=== PATIENT | female | born 1955 | race Caucasian/White ===

== ENCOUNTER → 2016-12-28 | Outpatient (REF) | payer MEDICARE, MEDICAID ==
[2016-12-28 12:48] LABS: MEAN CORPUSCULAR HEMOGLOBIN 30.3 pg (27.0-33.0); MEAN CORPUSCULAR HGB CONC 33.3 g/dl (32.0-36.5); MEAN CORPUSCULAR VOLUME 91.1 fl (80.0-96.0); RED CELL DISTRIBUTION WIDTH 12.7 % (11.5-14.5); WHITE BLOOD COUNT 7.2 K/mm3 (4.0-10.0)
[2016-12-28 13:15] LABS: ANION GAP 8 MEQ/L (8-16); BLOOD UREA NITROGEN 25 MG/DL (7-18); CALCIUM LEVEL 9.5 MG/DL (8.8-10.2); CARBON DIOXIDE LEVEL 30 MEQ/L (21-32); CHLORIDE LEVEL 104 MEQ/L (98-107); CREATININE FOR GFR 0.78 MG/DL (0.55-1.02); FREE T4 1.17 NG/DL (0.76-1.46); GLOMERULAR FILTRATION RATE > 60.0 (>45); GLUCOSE, FASTING 79 MG/DL (80-110); MAGNESIUM LEVEL 1.9 MG/DL (1.8-2.4); POTASSIUM SERUM 4.1 MEQ/L (3.5-5.1); SODIUM LEVEL 142 MEQ/L (136-145)
== END ==
LOC: M SFHCPLAZ 10:20
PROVIDERS: ATTEND Nurse Practitioner Family
DX: M79.1 Myalgia (principal); E03.9 Hypothyroidism, unspecified; K21.9 Gastro-esophageal reflux disease without esophagitis; E55.9 Vitamin D deficiency, unspecified

== ENCOUNTER → 2017-07-01 | Outpatient (REF) | payer MEDICARE, MEDICAID | LOC: M LAB REF 14:28 | PROVIDERS: ATTEND Nurse Practitioner Psychiatric/Mental Health | DX: Z51.81 Encounter for therapeutic drug level monitoring (principal); Z79.899 Other long term (current) drug therapy ==

== ENCOUNTER → 2017-07-01 | Outpatient (REF) | payer MEDICARE, MEDICAID ==
[2017-07-01 15:21] LABS: FOLATE > 24.0 NG/ML; VITAMIN B12 LEVEL 928 PG/ML
[2017-07-01 15:22] LABS: ALBUMIN 3.8 GM/DL (3.2-5.2); ALBUMIN/GLOBULIN RATIO 1.15 (1.00-1.93); ALKALINE PHOSPHATASE 85 U/L (45-117); ALT/SGPT 34 U/L (12-78); ANION GAP 7 MEQ/L (8-16); AST/SGOT 21 U/L (15-37); BILIRUBIN,TOTAL 0.8 MG/DL (0.2-1.0); BLOOD UREA NITROGEN 20 MG/DL (7-18); CALCIUM LEVEL 9.7 MG/DL (8.8-10.2); CARBON DIOXIDE LEVEL 30 MEQ/L (21-32); CHLORIDE LEVEL 104 MEQ/L (98-107); CHOLESTEROL LEVEL 180 MG/DL (<200); CREATININE FOR GFR 0.81 MG/DL (0.55-1.02); GLOMERULAR FILTRATION RATE > 60.0 (>45); GLUCOSE, FASTING 80 MG/DL (80-110); MAGNESIUM LEVEL 2.1 MG/DL (1.8-2.4); POTASSIUM SERUM 4.5 MEQ/L (3.5-5.1); SODIUM LEVEL 141 MEQ/L (136-145); TOTAL PROTEIN 7.1 GM/DL (6.4-8.2); TRIGLYCERIDES LEVEL 62 MG/DL (<150)
== END ==
LOC: M SFHCPLAZ 10:44
PROVIDERS: ATTEND Nurse Practitioner Family
DX: E78.2 Mixed hyperlipidemia (principal); E03.9 Hypothyroidism, unspecified; K21.9 Gastro-esophageal reflux disease without esophagitis; E55.9 Vitamin D deficiency, unspecified; Z51.81 Encounter for therapeutic drug level monitoring; Z79.899 Other long term (current) drug therapy

== ENCOUNTER → 2017-09-27 | Outpatient (REF) | payer MEDICARE, MEDICAID ==
[2017-09-27 14:13] LABS: TOTAL 25(OH) VITAMIN D 44.6 NG/ML (30.0-100.0)
[2017-09-27 14:35] LABS: ALBUMIN 3.7 GM/DL (3.2-5.2); ALBUMIN/GLOBULIN RATIO 1.19 (1.00-1.93); ALKALINE PHOSPHATASE 59 U/L (45-117); ALT/SGPT 30 U/L (12-78); ANION GAP 8 MEQ/L (8-16); AST/SGOT 21 U/L (7-37); BILIRUBIN,TOTAL 0.6 MG/DL (0.2-1.0); BLOOD UREA NITROGEN 19 MG/DL (7-18); CALCIUM LEVEL 8.6 MG/DL (8.8-10.2); CARBON DIOXIDE LEVEL 28 MEQ/L (21-32); CHLORIDE LEVEL 107 MEQ/L (98-107); CREATININE FOR GFR 0.77 MG/DL (0.55-1.02); GLOMERULAR FILTRATION RATE > 60.0 (>45); GLUCOSE, FASTING 97 MG/DL (80-110); POTASSIUM SERUM 4.2 MEQ/L (3.5-5.1); SODIUM LEVEL 143 MEQ/L (136-145); TOTAL PROTEIN 6.8 GM/DL (6.4-8.2)
== END ==
LOC: M SFHCPLAZ 10:49
DX: E78.2 Mixed hyperlipidemia (principal); E03.9 Hypothyroidism, unspecified; E55.9 Vitamin D deficiency, unspecified
CPT/HCPCS: 84443

== ENCOUNTER → 2017-10-09 | Outpatient (CLI) | payer MEDICARE, MEDICAID | LOC: M LAB 09:49 | DX: M19.91 Primary osteoarthritis, unspecified site (principal); M51.36 Other intervertebral disc degeneration, lumbar region; M51.37 Other intervertebral disc degeneration, lumbosacral region | CPT/HCPCS: 72110 ==

== ENCOUNTER → 2017-10-25 | Outpatient (CLI) | payer MEDICARE, MEDICAID | LOC: M WHC 13:26 | DX: Z12.31 Encounter for screening mammogram for malignant neoplasm of breast (principal); Z78.0 Asymptomatic menopausal state | CPT/HCPCS: 77067 ==

== ENCOUNTER 2017-11-01 14:00 | Outpatient (RCR) | payer MEDICARE, MEDICAID | END 2017-11-17 | LOC: M PT 14:00 | DX: Z51.89 Encounter for other specified aftercare (principal); M79.1 Myalgia | CPT/HCPCS: 97110 ==

== ENCOUNTER 2017-11-24 14:58 | Outpatient (RCR) | payer MEDICARE, MEDICAID | END 2017-12-18 | LOC: M PT 12-01 14:45 | DX: Z51.89 Encounter for other specified aftercare (principal); M79.1 Myalgia | CPT/HCPCS: 97110 ==

== ENCOUNTER → 2017-12-15 | Outpatient (REF) | payer MEDICARE, MEDICAID ==
[2017-12-15 18:42] LABS: BASO # 0.1 10^3/uL (0.0-0.2); BASO % 0.8 % (0.0-1.0); EOS # 0.1 10^3/uL (0.0-0.50); HEMATOCRIT 38.3 % (36.0-47.0); HEMOGLOBIN 12.7 g/dl (12.0-16.0); IMMATURE GRANULOCYTE % 0.2 % (0-3.0); LYMPH # 2.2 10^3/uL (1.5-4.5); MEAN CORPUSCULAR HEMOGLOBIN 31.5 pg (27.0-33.0); MEAN CORPUSCULAR HGB CONC 33.2 g/dl (32.0-36.5); MONO # 0.6 10^3/uL (0.0-0.8); MONO % 9.7 % (0.0-5.0); NEUTROPHILS # 3.1 10^3/uL (1.8-7.7); NEUTROPHILS % 51.3 % (36.0-66.0); PLATELET COUNT, AUTOMATED 244 10^3/uL (150-450); RED BLOOD COUNT 4.03 10^6/uL (4.00-5.40); RED CELL DISTRIBUTION WIDTH 14.3 % (11.5-14.5)
[2017-12-15 19:02] LABS: ALBUMIN/GLOBULIN RATIO 1.33 (1.00-1.93); ALKALINE PHOSPHATASE 56 U/L (45-117); ALT/SGPT 24 U/L (12-78); ANION GAP 5 MEQ/L (8-16); AST/SGOT 14 U/L (7-37); BILIRUBIN,TOTAL 0.9 MG/DL (0.2-1.0); BLOOD UREA NITROGEN 20 MG/DL (7-18); CALCIUM LEVEL 9.5 MG/DL (8.8-10.2); CARBON DIOXIDE LEVEL 31 MEQ/L (21-32); CHLORIDE LEVEL 107 MEQ/L (98-107); CREATININE FOR GFR 0.76 MG/DL (0.55-1.30); GLOMERULAR FILTRATION RATE > 60.0 (>45); GLUCOSE, FASTING 87 MG/DL (70-100); POTASSIUM SERUM 4.2 MEQ/L (3.5-5.1); SODIUM LEVEL 143 MEQ/L (136-145)
[2017-12-15 19:15] LABS: ERYTHROCYTE SEDIMENTATION RATE 15 mm/hr (0-30)
== END ==
LOC: M SFHCPLAZ 14:54
DX: M25.552 Pain in left hip (principal)
CPT/HCPCS: 80053

== ENCOUNTER → 2017-12-20 | Outpatient (CLI) | payer MEDICARE, MEDICAID | LOC: M RAD 18:57 | DX: M25.552 Pain in left hip (principal) | CPT/HCPCS: 73502 ==

== ENCOUNTER 2017-12-22 14:51 | Outpatient (RCR) | payer MEDICARE, MEDICAID | END 2018-01-17 | LOC: M PT 14:51 | DX: Z51.89 Encounter for other specified aftercare (principal); M79.1 Myalgia | CPT/HCPCS: 97110 ==

== ENCOUNTER → 2018-07-08 | Outpatient (REF) | payer MEDICARE, MEDICAID ==
[2018-07-08 13:02] LABS: ALBUMIN 4.3 GM/DL (3.2-5.2); ALBUMIN/GLOBULIN RATIO 1.43 (1.00-1.93); ALKALINE PHOSPHATASE 62 U/L (45-117); ALT/SGPT 34 U/L (12-78); ANION GAP 6 MEQ/L (8-16); AST/SGOT 22 U/L (7-37); BLOOD UREA NITROGEN 16 MG/DL (7-18); CALCIUM LEVEL 9.6 MG/DL (8.8-10.2); CARBON DIOXIDE LEVEL 32 MEQ/L (21-32); CHLORIDE LEVEL 102 MEQ/L (98-107); CHOLESTEROL LEVEL 214 MG/DL (<200); CHOLESTEROL RISK RATIO 2.206 (<5); CREATININE FOR GFR 0.84 MG/DL (0.55-1.30); FREE T4 1.13 NG/DL (0.76-1.46); GLOMERULAR FILTRATION RATE > 60.0 (>45); GLUCOSE, FASTING 92 MG/DL (70-100); HDL CHOLESTEROL 97 MG/DL (>40); LDL CHOLESTEROL 107 MG/DL (<100); NON-HDL-C 117 MG/DL; POTASSIUM SERUM 4.1 MEQ/L (3.5-5.1); SODIUM LEVEL 140 MEQ/L (136-145); THYROID STIMULATING HORMONE 0.713 uIU/ML (0.358-3.740); TOTAL PROTEIN 7.3 GM/DL (6.4-8.2); TRIGLYCERIDES LEVEL 50 MG/DL (<150)
[2018-07-08 13:04] LABS: TOTAL 25(OH) VITAMIN D 54.1 NG/ML (30.0-100.0)
== END ==
LOC: M SFHCPLAZ 10:38
DX: E78.2 Mixed hyperlipidemia (principal); E03.9 Hypothyroidism, unspecified; E55.9 Vitamin D deficiency, unspecified
CPT/HCPCS: 84443

== ENCOUNTER → 2018-10-28 | Outpatient (CLI) | payer MEDICARE, MEDICAID ==
--- NOTE | 2018-10-28 17:14 | REPMRS ---
Patient History The patient states she had a clinical breast exam in 11/08 Family history of breast cancer at age 50 or over in mother, colorectal cancer at age 50 or over in maternal grandmother. Digital Woman Screen Mammo: October 28, 2018 - Exam #: [id number] Bilateral CC and MLO view(s) were taken. Technologist: Dennise Ribeiro, Technologist Prior study comparison: October 25, 2017, digital woman screen mammo performed at [facility]. April 28, 2016, digital woman screen mammo performed at [facility]. February 13, 2015, digital woman screen mammo performed at [facility]. FINDINGS: The breast tissue is heterogeneously dense. This may lower the sensitivity of mammography. There is a moderate amount of heterogeneously dense fibroglandular tissue which is fairly symmetric. There is no interval development of dominant mass, architectural distortion, or clustered microcalcification typical of malignancy. There has been no change in the appearance of the mammogram from the prior studies. 3-D tomosynthesis shows no additional findings. Assessment: BI-RADS/ACR category 1 mammogram. Negative Mammogram. Recommendation Routine screening mammogram of both breasts in 1 year (for women over age 40). This patient's Lifetime Breast Cancer RIsk is estimated at 8.9 %. This mammogram was interpreted with the aid of an FDA-approved computer-aided dectection system. Electronically Signed By: Milton Florentino MD 10/28/18 [id number]
== END ==
LOC: M WHC 15:13
PROVIDERS: ATTEND Nurse Practitioner Family
DX: Z12.31 Encounter for screening mammogram for malignant neoplasm of breast (principal); Z80.3 Family history of malignant neoplasm of breast; Z80.0 Family history of malignant neoplasm of digestive organs

== ENCOUNTER → 2018-11-01 | Outpatient (REF) | payer MEDICARE, MEDICAID ==
[~2018-11-01] MED LIST: ADV500INH INH; ALBU83IN INH; ARIP1TAB PO; BACL10TA2 PO; BUSP15TA47 PO; CALC1TAB55 PO; CELE1CAP4 PO; CENT1TAB PO; CLON0.5T8 PO; DULO1CAP3 PO; FOLI800C PO; LEVO88TA3 PO; MAGN500C2 PO; MONT10TA2 PO; MYRB50TA PO; OMEP20CA3 PO; PRAV40TA2 PO; PRAZ2CAP PO; PROAAER10 INH; TRAZO50TA PO; TYLE650T35 PO; VITA100067 PO; ZIPR80CA12 PO
[2018-11-01 16:37] LABS: APPEARANCE, URINE CLEAR (CLEAR); BACTERIA, URINE AUTO NEGATIVE (NEGATIVE); BILIRUBIN, URINE AUTO NEGATIVE (NEGATIVE); BLOOD, URINE BLOOD NEGATIVE (NEGATIVE); COLOR, URINE YELLOW (YELLOW); GLUCOSE, URINE (UA) AUTO NEGATIVE (NEGATIVE); KETONE, URINE AUTO NEGATIVE (NEGATIVE); LEUKOCYTE ESTERASE, URINE AUTO NEGATIVE (NEGATIVE); MUCUS, URINE SMALL (NEGATIVE); NITRITE, URINE AUTO NEGATIVE (NEGATIVE); PROTEIN, URINE AUTO NEGATIVE (NEGATIVE); RBC, URINE AUTO 2 /HPF (0-3); SPECIFIC GRAVITY URINE AUTO 1.009 (1.002-1.035); SQUAMOUS EPITHELIAL CELL UR AU 0 /HPF (0-6); UROBILINOGEN, URINE AUTO 0.2 mg/dL (0.0-2.0); WBC, URINE AUTO 0 /HPF (0-3)
== END ==
LOC: M SFHCPLAZ 14:45
PROVIDERS: ATTEND Nurse Practitioner Family
DX: R35.0 Frequency of micturition (principal)
CPT/HCPCS: 81001; 87086; G0463

== ENCOUNTER 2018-12-02 09:14 | Day surgery (SDC) | payer MEDICARE, MEDICAID ==
[~2018-12-02] VITALS: Ht 160 cm; Wt 82.5 kg
[2018-12-02] MEDS ORDERED: NS 1,000 ML IV ONE (09:45)
--- NOTE | 2018-12-02 11:33 | ROOR ---
Patient Name: Silke Huitron Procedure Date: 12/02/2018 10:57 AM Date of : 1955 Age: 63 Room: [facility] Gender: Female Note Status: Finalized Procedure: Colonoscopy Indications: High risk colon cancer surveillance: Personal history of colonic polyps, Family history of colon cancer Providers: Cameron ALBERTS MD Referring MD: Krissy Huntley NP Requesting Provider: Medicines: Monitored Anesthesia Care Complications: No immediate complications. Procedure: Pre-Anesthesia Assessment: - The heart rate, respiratory rate, oxygen saturations, blood pressure, adequacy of pulmonary ventilation, and response to care were monitored throughout the procedure. The Colonoscope was introduced through the anus and advanced to the cecum, identified by appendiceal orifice and ileocecal valve. The colonoscopy was performed with patient supine throughout the procedure but without difficulty. The patient tolerated the procedure well. The quality of the bowel preparation was good. Findings: The perianal and digital rectal examinations were normal. Two sessile polyps were found in the sigmoid colon. The polyps were 3 to 4 mm in size. These polyps were removed with a cold snare. Resection and retrieval were complete. Mild sigmoid diverticulosis and small internal hemorrhoids. Impression: - Two 3 to 4 mm polyps in the sigmoid colon, removed with a cold snare. Resected and retrieved. - Mild sigmoid diverticulosis and small internal hemorrhoids. - The exam was otherwise normal to the cecum. Recommendation: - Repeat colonoscopy in 5 years for adenoma surveillance. Cameron Alberts MD Cameron ALBERTS MD 12/02/2018 11:32:36 AM This report has been signed electronically. Number of Addenda: 0 Note Initiated On: 12/02/2018 10:57 AM Estimated Blood Loss: Estimated blood loss: none.
[2018-12-02] MEDS ORDERED: PROPOFOL 200 MG/20 ML VIAL As Ordered ONE (11:49)
[2018-12-02] MEDS ORDERED: LIDOCAINE 2% INJ 100 MG/5 ML SDV (FOR ANES.) As Ordered ONE (11:49)
[2018-12-02 11:55] VITALS: BP 160/75
== END 2018-12-02 11:57 | disposition home or self-care (01) ==
LOC: M OPP 09:14
PROVIDERS: ATTEND Internal Medicine Gastroenterology
DX: Z12.11 Encounter for screening for malignant neoplasm of colon (principal); Z86.010 Personal history of colon polyps; Z80.0 Family history of malignant neoplasm of digestive organs; D12.5 Benign neoplasm of sigmoid colon; K57.30 Diverticulosis of large intestine without perforation or abscess without bleeding; K64.9 Unspecified hemorrhoids; Z79.899 Other long term (current) drug therapy

== ENCOUNTER → 2019-01-10 | Outpatient (REF) | payer MEDICARE, MEDICAID ==
[2019-01-10 13:41] LABS: ALBUMIN 3.7 GM/DL (3.2-5.2); ALT/SGPT 36 U/L (12-78); BILIRUBIN,TOTAL 0.8 MG/DL (0.2-1.0); BLOOD UREA NITROGEN 20 MG/DL (7-18); CALCIUM LEVEL 9.3 MG/DL (8.8-10.2); CARBON DIOXIDE LEVEL 30 MEQ/L (21-32); CHLORIDE LEVEL 105 MEQ/L (98-107); CREATININE FOR GFR 0.72 MG/DL (0.55-1.30); FREE T4 1.06 NG/DL (0.76-1.46); GLOMERULAR FILTRATION RATE > 60.0 (>45); GLUCOSE, FASTING 85 MG/DL (70-100); POTASSIUM SERUM 4.4 MEQ/L (3.5-5.1); SODIUM LEVEL 140 MEQ/L (136-145); TOTAL 25(OH) VITAMIN D 48.3 NG/ML (30.0-100.0)
[2019-01-11 10:55] LABS: HEPATITIS C VIRUS ABY INDEX 0.1 INDEX (<0.8)
== END ==
LOC: M SFHCPLAZ 10:52
PROVIDERS: ATTEND Nurse Practitioner Family
DX: M51.36 Other intervertebral disc degeneration, lumbar region (principal); E03.9 Hypothyroidism, unspecified; Z11.59 Encounter for screening for other viral diseases; E55.9 Vitamin D deficiency, unspecified

== ENCOUNTER → 2019-03-08 | Outpatient (CLI) | payer MEDICARE, MEDICAID ==
[~2019-03-08] MED LIST changes: +TRAZ1TAB10 PO; -TRAZO50TA PO
[2019-03-08 09:59] LABS: BLOOD UREA NITROGEN 16 MG/DL (7-18); CALCIUM LEVEL 9.7 MG/DL (8.8-10.2); CARBON DIOXIDE LEVEL 29 MEQ/L (21-32); CHLORIDE LEVEL 105 MEQ/L (98-107); CREATININE FOR GFR 0.87 MG/DL (0.55-1.30); GLOMERULAR FILTRATION RATE > 60.0 (>45); GLUCOSE, FASTING 89 MG/DL (70-100); POTASSIUM SERUM 4.1 MEQ/L (3.5-5.1); SODIUM LEVEL 140 MEQ/L (136-145)
--- NOTE | 2019-03-08 10:09 | REP ---
PA and lateral chest: There are no comparisons. Lung catherine are clear. The cardiac size is normal. The rex and mediastinum are unremarkable. There is thoracic scoliosis convex right. There is a cervical spine stabilization plate. Impression: There are no acute cardiopulmonary changes. Thoracic scoliosis. Cervical spine stabilization plate. Electronically Signed by He Azar MD 03/08/2019 10:01 A
--- NOTE | 2019-03-09 07:42 | ECGEPIP ---
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
== END ==
LOC: M LAB 08:02
PROVIDERS: ATTEND Orthopaedic Surgery
DX: Z01.818 Encounter for other preprocedural examination (principal); M48.00 Spinal stenosis, site unspecified; J44.9 Chronic obstructive pulmonary disease, unspecified

== ENCOUNTER 2019-03-27 07:30 | Inpatient (IN) | payer MEDICARE, MEDICAID ==
--- NOTE | 2019-03-21 17:56 | HPE ---
DATE OF ADMISSION: 03/27/2019 ATTENDING PHYSICIAN: Dr. Andre CHIEF COMPLAINT: Back pain and pain radiating to her left greater than right lower extremity. HISTORY: This is a 63-year-old female patient with progressively worsening back pain and pain radiating to the lower extremities, left greater than the right per the patient. She has gone through epidural steroid injections with minimal improvement with symptoms worsened. Gabapentin did not help. Her MRI is consistent with spinal stenosis. X-rays notable for a spondylolisthesis grade 1 at L3-4. She has been consented by Dr. Andre for a left unilateral laminectomy at L3-4 as well as pedicle screw fusion at L3-4 with the use of iliac crest graft from either the left or right side and donor bone. Medical optimization by Dr. Carter. ALLERGIES: NAPROXEN, ENABLEX as well as OXYBUTYNIN. PAST MEDICAL HISTORY: Includes elevated lipids, spinal stenosis with neurogenic claudication, lumbar spondylolisthesis L3-4, gastric reflux disease, asthma, depression, hypothyroidism, history of alcohol abuse, schizophrenia, neck pain status post fusion, osteopenia and osteoarthritis. PAST SURGICAL HISTORY: Includes tubal ligation, three abortions, teeth extraction, cervical fusion, she is unsure of what levels, tonsillectomy and colonoscopy. CURRENT MEDICATIONS: - acetaminophen 650 mg one tablet every four hours as needed - Abilify 10 mg one tablet once per day - trazodone 50 mg one tablet at bedtime - Geodon 80 mg one tablet twice a day - clonazepam 0.25 mg one tablet as needed daily - BuSpar 15 mg one tablet three times a day - folic acid 400 mcg one tablet once per day - daily multivitamin - prazosin 2 mg one tablet at bedtime - Cymbalta 20 mg two tablets once per day - baclofen 10 mg one tablet up to twice a day - vitamin D - pravastatin 40 mg one tablet once per day - gabapentin 300 mg one tablet three times a day - Zanaflex 2 mg as needed - ProAir inhaler 90 mcg two puffs as needed - levothyroxine 88 mcg one tablet in the morning - albuterol inhaler as needed - Myrbetriq 50 mg one tablet once per day - magnesium 500 mg one tablet once per day - Singulair 10 mg one tablet in the evening - Celebrex 200 mg one tablet once per day - Prilosec 20 mg one tablet once per day - Advair Diskus 500/50 mcg one spray twice a day FAMILY HISTORY: Breast cancer, diabetes, throat cancer, coronary artery disease, colon cancer. SOCIAL HISTORY: She is a former smoker, former use of alcohol. She is currently retired. REVIEW OF SYSTEMS: Denies fever or chills. Denies chest pain, shortness of breath. Denies difficulty breathing. Denies recent upper respiratory infection (URI) or urinary tract infection (UTI) symptoms. Notes persistent pain in her back, pain down into her lower extremities, left greater than the right. Denies change in her bowel or bladder habits. PHYSICAL EXAMINATION: Today reveals an alert, well-nourished, elderly female patient. She ambulates with a slow gait but her gait is not wide-based. Her mood and affect are appropriate. Deep tendon reflexes are absent at the knees, absent at the ankles. Straight leg raise testing is negative. Skin around the back is intact. No erythema, edema or ecchymosis. Neck is supple without adenopathy or jugular venous distention (JVD). There is a well-healed surgical scar. Lungs are clear to auscultation without rales or wheeze. Heart: Regular rate and rhythm. Abdomen: Bowel sounds are present. Height 62 inches, weight 184 pounds, temperature 98.3, blood pressure 127/77, pulse 72, respirations 18. LABORATORY DATA: Hemoglobin 12.9, glucose 89, BUN 16, creatinine 0.87, sodium 140, potassium 4.1. Chest x-ray shows no acute cardiopulmonary disease process noted. EKG: Sinus rhythm with PVCs. IMPRESSION: Lumbar spinal stenosis with neurogenic claudication L3-4, lumbar spondylolisthesis L3-4. PLAN: She has consented for a left unilateral laminectomy L3-4 and fusion with pedicle screws at L3-4 with the use of iliac crest graft from the right or left hip and the use of donor bone. TJ
[~2019-03-27] VITALS: Ht 160 cm; Wt 83.0 kg
[2019-03-27] VITALS (20 sets, daily range): BP systolic 91–178; BP diastolic 66–96
[~2019-03-27 07:30] MED LIST changes: +CLON0.12 PO; +D-20TAB PO; +GABA-843 PO; +LIDOCAINE 1% MDV 20ML VIAL SQ PRN; +PX S0.65; +TIZA2CAP PO; +TUMS1000 PO; +[UNRECOGNIZED DRUG - OTHER] PO
[2019-03-27] MEDS ORDERED: KETAMINE HCL 200 MG/20 ML VIAL As Ordered ONE (09:17)
[2019-03-27] MEDS ORDERED: SUGAMMADEX SODIUM 500 MG/5 ML VIAL (BRIDION) As Ordered ONE (09:18)
[2019-03-27] MEDS ORDERED: LIDOCAINE 2% INJ 100 MG/5 ML SDV (FOR ANES.) As Ordered ONE ×3 (09:18→17:04)
[2019-03-27] MEDS ORDERED: PROPOFOL 500 MG/50 ML VIAL As Ordered ONE ×2 (09:18→13:48)
[2019-03-27] MEDS ORDERED: fentaNYL 250 MCG/5 ML INJECTION (J3010) As Ordered ONE (09:18)
[2019-03-27] MEDS ORDERED: PROPOFOL 200 MG/20 ML VIAL As Ordered ONE ×4 (09:18→16:10)
[2019-03-27] MEDS ORDERED: MIDAZOLAM INJ 2 MG/2 ML VIAL (J2250) As Ordered ONE ×2 (09:18→10:14)
[2019-03-27] MEDS ORDERED: ONDANSETRON 4MG/2ML VIAL (J2405) As Ordered ONE (09:18)
[2019-03-27] MEDS ORDERED: ROCURONIUM BROMIDE 50 MG/5 ML VIAL As Ordered ONE (09:18)
[2019-03-27] MEDS ORDERED: CelecoXIB 400 MG CAP PO ONE (09:18)
[2019-03-27] MEDS ORDERED: dexameTHASONE 4 MG/ML 1ML VIAL (J1100) As Ordered ONE (09:19)
[2019-03-27] MEDS ORDERED: GABAPENTIN 300 MG CAP PO ONE (09:30)
[2019-03-27] MEDS ORDERED: PERCOCET 5MG/325MG TAB PO ONE (09:30)
[2019-03-27] MEDS ORDERED: LR 1,000 ML IV ONE (10:30)
[2019-03-27] MEDS ORDERED: BUPIVACAINE/EPIN 0.25% 30 ML VIAL As Ordered ONE (10:38)
[2019-03-27] MEDS ORDERED: BUPIVACAINE HCL 0.5% 30 ML VIAL As Ordered ONE (10:39)
[2019-03-27] MEDS ORDERED: THROMBIN SOLN 20,000 UNITS KIT As Ordered ONE (10:39)
[2019-03-27] MEDS ORDERED: TRANEXAMIC ACID 100 MG/ML 10ML VIAL As Ordered ONE (10:39)
[2019-03-27] MEDS ORDERED: VANCOMYCIN HCL 500 MG/10 ML VIAL (J3370) As Ordered ONE (10:39)
[2019-03-27] MEDS ORDERED: EPINEPHrine INJ 1 MG/ML 1ML AMP As Ordered ONE (10:39)
[2019-03-27] MEDS ORDERED: BUPIVACAINE LIPOSOME/PF 1.3% 20ML VIAL (13.3MG/ML)(EXPAREL)(C9290 PER1MG) As Ordered ONE (10:40)
[2019-03-27] MEDS ORDERED: BACITRACIN PWD 50,000 UNITS VIAL As Ordered ONE (10:40)
[2019-03-27] MEDS ORDERED: METHOCARBAMOL 1,000 MG/10 ML VIAL (J2800) As Ordered ONE (13:13)
--- NOTE | 2019-03-27 18:06 | REP ---
Lumbar spine: Single intraoperative view: History: Laminectomy with fusion. Findings: A cross-table lateral intra procedural spot radiograph timestamp 01:30 p.m. demonstrates an intraoperative probe at the dorsal aspect of the spinal canal at the level of the L3-4 intervertebral disc. This disc is narrowed in height.. Electronically Signed by Toño Florentino MD 03/28/2019 04:41 P
[2019-03-27] MEDS ORDERED: METOCLOPRAMIDE INJ 10MG/2ML VIAL (J2765) IV PRN (18:45)
[2019-03-27] MEDS ORDERED: LR 1,000 ML IV SCH (18:45)
[2019-03-27] MEDS ORDERED: ONDANSETRON 4MG/2ML VIAL (J2405) IV PRN (18:45)
[2019-03-27] MEDS ORDERED: MEPERIDINE INJ 25 MG/ML VIAL (J2175) IV PRN (18:45)
[2019-03-27] MEDS: PERCOCET 5MG/325MG TAB PO PRN ×2 (19:10→19:37)
[2019-03-27] MEDS: fentaNYL 100 MCG/2 ML INJECTION (J3010) IV PRN ×3 (19:10→19:20)
[2019-03-27] MEDS ORDERED: ACETAMINOPHEN TAB 650MG DOSE (2X325MG) PO PRN (19:30)
[2019-03-27] MEDS ORDERED: tiZANidine 4 MG TAB PO PRN (19:30)
[2019-03-27] MEDS ORDERED: PERCOCET 5MG/325MG TAB PO PRN (19:30)
[2019-03-27] MEDS ORDERED: PILL CUTTER 1 EACH XX PRN (19:45)
[2019-03-27] MEDS ORDERED: ALBUTEROL 6.7GM INHALER **FOR ANES. CART/OMNICELL ONLY INH PRN (19:45)
[2019-03-27] MEDS ORDERED: HYDROMORPHONE HCL 0.5 MG/ 0.5 ML SYRINGE (J1170 PER 1) IV PRN (20:00)
[2019-03-27] MEDS ORDERED: traZODone 50 MG TAB PO SCH (21:00)
[2019-03-27] MEDS ORDERED: clonazePAM 0.5 MG TAB PO SCH (21:00)
[2019-03-27] MEDS: GABAPENTIN 300 MG CAP PO SCH (21:36)
[2019-03-27] MEDS: D5W/LR 1,000 ML IV SCH (21:37)
--- NOTE | 2019-03-27 23:39 | CR.PDOC ---
General Date of Consultation: Mar 27, 2019 Consultation REASON FOR CONSULTATION/CHIEF COMPLAINT: POST OP MANAGEMENT OF COMORBIDITIES HISTORY OF PRESENT ILLNESS: 63F with hx of copd, hypothyroid, alcohol abuse and schizophrenia presenting for an elective lumbar fusion. She has had progressively worsening lower back pain. She has undergone injections and medical therapy without any improvement. Pt is seen on the floor post operative resting comfortably with no complaints. ALLERGIES: Please see below. HOME MEDICATIONS: Please see below. PAST MEDICAL HISTORY: 1. copd 2. hypothyroid 3. Schizophrenia PAST SURGICAL HISTORY: 1. tonsillectomy 2. cervical fusion 3. tubal ligation FAMILY HISTORY: Breast cancer, diabetes, throat cancer, coronary artery disease, colon cancer. SOCIAL HISTORY: former smoker former etoh abuse a full ROS was performed and negative with the exception of what is documented above PHYSICAL EXAMINATION: VITAL SIGNS: Please see below. GENERAL APPEARANCE: resting comfortably, NAD HEENT: normocephalic, atraumatic, PERRL, EOMI RESPIRATORY: unlabored, CTA bilat, good air movement CARDIOVASCULAR: RRR, S1S2, no MRG ABDOMEN: soft, nontender, nondistended EXTREMITIES: good rom, no edema NEUROLOGICAL: no focal deficits PSYCHIATRIC: A+Ox3, nl mood and affectd LABORATORY DATA: Please see below. ASSESSMENT/PLAN: 1. lumbar stenosis s/p laminectomy care per orthopedics 2. COPD stable continue advair continue albuterol prn 3. hypothyroid stable continue synthroid 4. Schizophrenia stable continue geodon, abilify, buspar, cymbalta Vital Signs/I&O Vital Signs Date Time Temp Pulse Resp B/P (MAP) Pulse Ox O2 Delivery O2 Flow Rate FiO2 03/27/19 22:19 18 03/27/19 22:11 99.2 97 132/75 (94 96 2.0 Allergies Coded Allergies: darifenacin (Verified Adverse Reaction, Severe, abdominal pain, 03/20/19) oxybutynin (Verified Adverse Reaction, Severe, abdominal pain, 03/20/19) naproxen (Verified Adverse Reaction, Unknown, SEVERE ABDOMINAL PAIN, 03/20/19) Home Medications Scheduled Acetaminophen (Tylenol Arthritis) 650 Mg Tab, 1,300 MG PO BID, (Reported) Aripiprazole (Aripiprazole) 10 Mg Tab, 10 MG PO DAILY, (Reported) Baclofen (Baclofen) 10 Mg Tab, 10 MG PO BID, (Reported) Buspirone HCl (Buspirone HCl) 15 Mg Tab, 15 MG PO TID, (Reported) Calcium Carbonate/Vitamin D3 (Super Calcium 600-Vit D3 400) 1 Tab Tab, 1 TAB PO BID, (Reported) Celecoxib (Celebrex) 200 Mg Cap, 200 MG PO DAILY, (Reported) Cholecalciferol (Vitamin D3) (Vitamin D3) 2,000 Unit Tablet, 2,000 UNIT PO DAILY, (Reported) Duloxetine Hcl (Duloxetine HCl) 60 Mg Cap, 60 MG PO DAILY, (Reported) Folic Acid (Folic Acid) 800 Mcg Cap, 800 MCG PO DAILY, (Reported) Gabapentin (Gabapentin) 300 Mg Capsule, 300 MG PO BID for 5 Days, #10 (Reported) Levothyroxine Sodium (Levothyroxine Sodium) 88 Mcg Tab, 88 MCG PO DAILY, (Reported) Magnesium Oxide (Magnesium Oxide) 500 Mg Cap, 500 MG PO DAILY, (Reported) Mirabegron (Myrbetriq) 50 Mg Tab, 50 MG PO DAILY, (Reported) Montelukast Sodium (Montelukast Sodium) 10 Mg Tab, 10 MG PO DAILY, (Reported) Multivit-Min/FA/Lycopen/Lutein (Centrum Silver Tablet) 1 Tab Tab, 1 TAB PO DAILY, (Reported) Omeprazole (Omeprazole) 20 Mg Cap, 20 MG PO DAILY, (Reported) Pravastatin Sodium (Pravastatin Sodium) 40 Mg Tab, 40 MG PO DAILY, (Reported) Prazosin Hcl (Prazosin HCl) 2 Mg Cap, 4 MG PO QPM, (Reported) Pseudoephedrine HCl (Sinus 12 Hour) 120 Mg Tablet.er, 120 MG PO BIDP, (Reported) Salmeterol/Fluticasone (Advair 500-50 Diskus) 28 Puff/Inhaler Aerp, 1 PUFF INH BID, (Reported) Sodium Chloride (Saline Nasal Burr) 88 Ml Burr, 0.65 % NA BID, (Reported) Tizanidine HCl (Tizanidine HCl) 2 Mg Capsule, 2 MG PO DAILY, (Reported) Trazodone HCl (Trazodone HCl) 50 Mg Tab, 50 MG PO QPM, (Reported) Ziprasidone HCl (Ziprasidone HCl) 80 Mg Cap, 80 MG PO BID, (Reported) Scheduled PRN Albuterol Sulf (Albuterol Sulfate) 2.5 Mg/3 Ml Nebu, 2.5 MG INH Q4HP PRN for SOB/WHEEZING, (Reported) Albuterol Sulfate (Proair Hfa) 108 Mcg/Act Aer, 2 PUFF INH Q4HP PRN for SHORTNESS OF BREATH, (Reported) Calcium Carbonate (Tums Ultra) 400 Mg Tab.chew, 1,000 MG PO PRN PRN for HEARTBURN, (Reported) Clonazepam (Clonazepam) 0.125 Mg Tab.rapdis, 0.125 MG PO BIDP PRN for ANXIETY/AGITATION, (Reported) maximum 2 /day CATALINA FENTON MD Mar 27, 2019 23:39
[2019-03-28 00:22] VITALS: BP 116/59
[2019-03-28 01:55] VITALS: BP 116/67
[2019-03-28] MEDS: PERCOCET 5MG/325MG TAB PO PRN ×3 (03:21→15:57)
[2019-03-28] MEDS: D5W/LR 1,000 ML IV SCH ×2 (05:15→15:15)
[2019-03-28] MEDS ORDERED: LEVOTHYROXINE 88MCG TABLET (0.088 MG) PO SCH (06:00)
[2019-03-28 06:13] VITALS: BP 115/60
--- NOTE | 2019-03-28 07:16 | REP ---
C-ARM VIEWS LUMBAR SPINE: Two C-arm views lumbar spine are performed during placement of posterior fusion hardware. Posterior rods and screws are seen at what appears to be the L3-4 level. The entire lumbar spine is not included on these images. 1 minute 50 seconds fluoroscopy time utilized. Electronically Signed by He Mancia MD 03/29/2019 09:42 A
[2019-03-28] MEDS ORDERED: ADVAIR HFA 230/21MCG INHALER INH SCH (08:00)
[2019-03-28] MEDS ORDERED: BACLOFEN 10 MG TAB PO SCH (09:00)
[2019-03-28] MEDS ORDERED: MONTELUKAST 10 MG TAB PO SCH (09:00)
[2019-03-28] MEDS ORDERED: PRAVASTATIN 20 MG TAB PO SCH (09:00)
[2019-03-28] MEDS ORDERED: OMEPRAZOLE 20 MG CAP PO SCH (09:00)
[2019-03-28] MEDS ORDERED: DULoxetine 20 MG CAP (CYMBALTA) PO SCH (09:00)
[2019-03-28] MEDS ORDERED: MAGNESIUM OXIDE 400 MG TAB (MAG-OX) PO SCH (09:00)
[2019-03-28] MEDS ORDERED: METAMUCIL (PSYLLIUM) PACKET PO SCH (09:00)
[2019-03-28] MEDS ORDERED: PRAZOSIN 1 MG CAP PO SCH (09:00)
[2019-03-28] MEDS ORDERED: FOLIC ACID 1 MG TAB PO SCH (09:00)
[2019-03-28] MEDS ORDERED: busPIRone 5 MG TAB PO SCH (09:00)
[2019-03-28] MEDS ORDERED: ZIPRASIDONE 80 MG CAP (GEODON) PO SCH (09:00)
[2019-03-28] MEDS ORDERED: ARIPiprazole 10 MG TAB PO SCH (09:00)
--- NOTE | 2019-03-28 09:01 | RO ---
DATE OF PROCEDURE: 03/27/2019 PREOPERATIVE DIAGNOSIS: Lumbar spinal stenosis secondary to spondylolisthesis and spondylosis at the L3-4 level with primarily left lower extremity neurogenic claudication. POSTOPERATIVE DIAGNOSIS: Lumbar spinal stenosis secondary to spondylolisthesis and spondylosis at the L3-4 level with primarily left lower extremity neurogenic claudication. PROCEDURE PERFORMED: Left L3 unilateral laminectomy for decompression of thecal sac and exiting nerve root, left L4 unilateral laminectomy for decompression of the thecal sac and traversing nerve roots, L3-4 arthrodesis, posterior intertransverse technique, L3-4 posterior non-segmental instrumentation, pedicle screws bilateral,. harvest and placement of right iliac crest bone graft. SURGEON: Case Andre MD MILK ROUTE SUPERVISOR: RUBI Childs ANESTHESIA: General endotracheal. Estimated blood loss less than 300 mL, replaced with crystalloid, no complications. INDICATIONS: Discomfort radiating down the left lower extremity, back pain. MRI and plain film evidence of spondylolisthesis at L3-4 with significant spinal stenosis. The patient has elected for operative intervention. Consent reviewed in detail including a ajime discussion of the pathology involved, the procedure proposed, alternatives including doing nothing or continuing with epidural injections and risks including but not limited to pain, failure, infection, bleeding, blood loss, incomplete relief of symptoms, need for additional surgery, and other issues. The patient agrees to proceed with surgery. Components used include Refined Labsium 6.5 system, 40 mm connecting rods bilaterally, the appropriate end cap. OPERATIVE COURSE: The patient was brought to the operating room, positioned on the table. Once I and the barker peeler were comfortable with the patient's positioning, she was then sterilely prepped, draped in usual fashion for exposure of the lumbar spine for decompression and fusion. Time-out was accomplished. Once this was accomplished, line of the incision was infiltrated with 0.25% Marcaine with epinephrine. Initially, I stood on the patient's left side. However, I did alternate sides throughout the course of the procedure for banks portions. I utilized 3.5 loupe magnification as well as a headlamp. We also utilized the operating microscope for portions of the procedure. Mr. Pratt looked through oculars on the right while I operated through the left. The dissection continued through subcuticular tissues to the posterior lumbar fascia the. Patient's body habitus was quite generous in terms of this area. I sharply reflected the posterior lumbar fascia off the spinous processes of 2, 3, 4. Placed a divot in inferior lamina. We got a cross-table lateral x-ray, which suggested further subluxation inferiorly. We drilled another divot into the lamina of the L3 level, placed a Philippe-Tyree in that lamina and this was the correct area. The dissection continued further on the left side further exposing the 3-4 level out to the transverse processes. Mr. Pratt swap sides with me, and he utilized the Kolby retractor to help me expose the transverse processes. Similarly, I dissected the patient's right paraspinal area down to the facet complexes and we also exposed the transverse processes on the patient's right side at L3 and L4. Once this was accomplished, irrigation was accomplished. The facets were quite hypertrophic. They were both debrided using the Leksell. This bone was utilized for bone graft. The operating microscope was now brought into the field. My loupes and headlamp were removed. Mr. Pratt looked through oculars on the right, I on the left. This facilitated safe use of the high-speed bur. The high-speed bur was utilized to implement the left unilateral laminectomy extending through the L3 lamina superior to the bare area, undercutting the spinous process so that we could reach over the midline and inferiorly into the L4 lamina again through the bare area of 4. The ligamentum flavum was extremely hypertrophic and this was removed using curettes and Kerrison's on the patient's left of midline incision. This exposed thecal sac. Subarticular space was decompressed using #2 Kerrison's as well as curved Kerrison's on the patient's left side. On the contralateral side, again we appreciated quite significant hypertrophic ligamentum flavum. We reached across the thecal sac and were able to decompress the subarticular recess by angling the microscope across the horizon of the thecal sac. #2 Kerrison's were also utilized to debride the patient's right side. Once I felt the decompression was adequate we irrigated. Hemostasis was accomplished with bipolar. I verified that I could palpate the pedicles at L4 and L3 quite easily on the patient's left side. At this point, the operating microscope was moved back in the field. We irrigated. We exposed the right superior posterior iliac crest using Kolby retractors. Mr. Pratt retracted. I opened separate fascial incision. Utilized Leksell to open the iliac crest. Utilized Coffey curettes to remove iliac crest bone graft. Irrigated. Placed dry Gelfoam and closed this periosteal wound using interrupted stitch. This was closed. At this stage, Mr. Pratt and I both stepped away from the table to don x-ray gowns and re-gowns, and I put my loupes and headlamp back on. Once this was accomplished, we began placing pedicle screws. I placed the first pedicle screws on the patient's left side, so I stood on the patient's right side, Mr. Pratt on the left side. I reached across. We obtained fluoroscopic images to verify our trajectories, including AP image to verify that we were at the lateral border of the pedicle, especially important considering the patient's quite degenerative anatomy, lateral films to determine that the pedicle finders went in the right trajectory. I first cannulated the L3 level with the pedicle finder, followed by the ball-tip to verify we were in the pedicle, followed by a tap to prepare the tract, followed by the ball-tip. We measured off of the ball-tip for a 45 screw at the L4 level on the left side. I placed a 6.5 x 45 screw. We moved inferiorly to the L4 level from the L3 level. I opened the pedicle using the high-speed bur, followed by the pedicle finder, followed by the ball-tipped guide, followed by the tap and again verifying the pedicle tract as well as the anterior aspect 45 mm screw on the left at L4. We selected a 7 mm screw at L4. The pedicles were large as L4. Once this was accomplished. Mr. Pratt utilized Kolby retractors to expose the transverse processes, which were decorticated. I then placed iliac crest bone graft directly over the transverse processes on the left. Once this was accomplished, the connecting enrrique was installed with a slight reduction of the spondylolisthesis using a counter torque device. Once this was accomplished, irrigation was accomplished. The patient's right side the pedicle screws were placed in a similar fashion, including the C-arm. Again, we placed 45 mm screws, 6.5 screw at L3, 7.0 screw at L4, connecting enrrique 40 mm again, except for slight reduction. Once this was accomplished, Mr. Pratt utilized Kolby retractors, exposed transverse processes. I decorticated the transverse processes as well as the lamina facet on the patient's right side since we have not removed the lamina on the right side and decompressed over the horizon. Once this was accomplished, the remaining iliac crest bone graft was instilled on the right side as well as local graft mixed with crushed cancellous, mixed with demineralized bone matrix putty placed over the lamina and facet complex and the bone graft over the transverse processes actually bilaterally. This had been accomplished after irrigation. We also sprinkled vancomycin crystals and packed the screw heads with the vancomycin crystals. Once this was accomplished, we did not appreciate any active bleeding but the patient did seem to be generally somewhat oozy, so we did place a drain from the left side to the laminectomy site. I closed the posterior lumbar fascia making sure to protect the drain. I did that with interrupted stitch. Irrigation was again accomplished. Exparel solution was instilled around the fascial tissues and subcuticular area. We had also placed tranexamic acid (TXA) after irrigation and that had been allowed stand. David fascia was reapproximated with interrupted stitch, deep dermis with interrupted stitch. Pernio dressing was applied. The patient was log-rolled to hospital bed, moved to recovery room in good condition. For further details please refer to medical record.
[2019-03-28 09:46] VITALS: BP 120/62
[2019-03-28] MEDS: GABAPENTIN 300 MG CAP PO SCH (09:46)
[2019-03-28 10:00] VITALS: BP 105/67
[2019-03-28 14:00] VITALS: BP 106/68
--- NOTE | 2019-03-28 17:27 | IPNPDOC ---
Date Seen The patient was seen on 03/28/19. Progress Note SUBJECTIVE:Pt requesting home care and a walker. Ortho to address prior to hospital discharge. Pt's drain to be removed prior to discharge. Pain is 5/10 on scale in the back but just received pain meds. PHYSICAL EXAMINATION: VITAL SIGNS: Please see below. GENERAL APPEARANCE: resting comfortably, NAD HEENT: normocephalic, atraumatic, PERRL, EOMI RESPIRATORY: unlabored, CTA bilat, good air movement CARDIOVASCULAR: RRR, S1S2, no MRG ABDOMEN: soft, nontender, nondistended. BACK: drain with bloody drainage postop changes in L3-L4 EXTREMITIES: good rom, no edema NEUROLOGICAL: no focal deficits PSYCHIATRIC: A+Ox3, nl mood and affectd LABORATORY DATA: Please see below. ASSESSMENT/PLAN: 63F with hx of copd, hypothyroid, alcohol abuse and schizophrenia presenting for an elective lumbar fusion. She has had progressively worsening lower back pain. She has undergone injections and medical therapy without any improvement. Pt is seen on the floor post operative resting comfortably with no complaints. Spinal stenosis s/p laminectomy and fusion L3-L4 pain control, bowel regimen, DVT prophylaxis per ortho postop mgt per ortho COPD stable continue advair continue albuterol prn hypothyroid stable continue synthroid Schizophrenia stable continue luis eduardo tate buspar, cymbalta disposition: per ortho. dc home today. VS, I&O, 24H, Fishbone Vital Signs/I&O Vital Signs Date Time Temp Pulse Resp B/P (MAP) Pulse Ox O2 Delivery O2 Flow Rate FiO2 03/28/19 16:27 18 03/28/19 14:00 98.6 108 106/68 (81) 94 03/28/19 06:13 1.0 I&O- Last 24 Hours up to 6 AM 03/28/19 06:00 Intake Total 3352 ml Output Total 2050 ml Balance 1302 ml NICK HEATON MD Mar 28, 2019 17:27
--- NOTE | 2019-03-30 18:56 | DSES ---
DATE OF ADMISSION: 03/27/2019 DATE OF DISCHARGE: 03/28/2019 ATTENDING PHYSICIAN: Dr. Case Andre. ADMISSION DIAGNOSIS: Lumbar spinal stenosis secondary to spondylolisthesis and spondylosis at the L3-4 level with primarily left lower extremity neurogenic claudication. OTHER DIAGNOSES: 1. Hyperlipidemia. 2. Gastroesophageal reflux disease. 3. Asthma. 4. Depression. 5. Hypothyroid. 6. Schizophrenia. 7. Osteoarthritis. 8. Osteoporosis. 9. History of alcohol use. 10. Neck pain status post fusion. DISCHARGE DIAGNOSIS: Low back pain with left greater than right radiculopathy secondary to spondylolisthesis and spondylosis at L3-4 status post left unilateral laminectomy at L3-4 and pedicle screw fusion at L3-4 using iliac crest and donor bone graft. HISTORY: Patient is a 63-year-old female that had progressively worsening low back pain with left greater than right lower extremity radiculopathy. She failed to improve with conservative measures to include epidural steroid injections. She consented for an elective left unilateral laminectomy with pedicle screw fusion at L3-4 using iliac crest and donor bone graft with Dr. Andre for her continued symptoms. OPERATION PERFORMED: Left L3 unilateral laminectomy for decompression of thecal sac and exiting nerve root, left L4 unilateral laminectomy for decompression of the thecal sac and transversing nerve roots, L3-4 arthrodesis, posterior intertransverse technique, L3-4 posterior nonsegmental instrumentation, pedicle screws bilaterally. [place] and placement of right iliac crest bone graft. HOSPITAL COURSE: The patient underwent a left unilateral laminectomy with pedicle screw fusion at L3-4 using iliac crest and donor bone graft. Surgery was done under general anesthesia and was uneventful. Her hospital course was without complication. Patient was discharged on oral pain medications and will resume her preoperative medications and diet. She will use her thromboembolic deterrent stockings postoperatively to prevent deep venous thrombosis. The patient will follow up in our office in approximately 7-10 days for wound check and reevaluation. She is encouraged to contact our office sooner if there is any increase in pain, drainage, redness, radiating pain, numbness or tingling in the extremities, problems with bowel or bladder control, fever greater than 101 degrees, or any other concerns. Please see medical record for additional details.
== END 2019-03-28 16:00 | disposition home health service (06) | DRG 460 ==
LOC: M OR 08:58 → M MS5PR 20:00
PROVIDERS: ADMIT Orthopaedic Surgery; ATTEND Orthopaedic Surgery
PROC: 00NY0ZZ Release Lumbar Spinal Cord, Open Approach (ICD-10-PCS; 2019-03-27)
PROC: 0SG1071 Fusion of 2 or more Lumbar Vertebral Joints with Autologous Tissue Substitute, Posterior Approach, Posterior Column, Open Approach (ICD-10-PCS; principal; 2019-03-27 10:45)
DX: M48.061 Spinal stenosis, lumbar region without neurogenic claudication (principal); M43.16 Spondylolisthesis, lumbar region; M47.896 Other spondylosis, lumbar region; E78.5 Hyperlipidemia, unspecified; K21.9 Gastro-esophageal reflux disease without esophagitis; J45.909 Unspecified asthma, uncomplicated; F32.9 Major depressive disorder, single episode, unspecified; E03.9 Hypothyroidism, unspecified; M85.80 Other specified disorders of bone density and structure, unspecified site; M19.90 Unspecified osteoarthritis, unspecified site; F20.9 Schizophrenia, unspecified; Z79.899 Other long term (current) drug therapy; Z87.891 Personal history of nicotine dependence

== ENCOUNTER → 2019-11-03 | Outpatient (CLI) | payer MEDICARE, MEDICAID ==
[~2019-11-03] MED LIST changes: +CLON0.5T2 PO; -CLON0.5T8 PO; -DULO1CAP3 PO; +DULO1CAP6 PO; -LIDOCAINE 1% MDV 20ML VIAL SQ PRN; -MONT10TA2 PO; +MONT10TA4 PO; +OMEP1CAP73 PO; -OMEP20CA3 PO
--- NOTE | 2019-11-03 16:12 | REPMRS ---
Patient History The patient states she had a clinical breast exam in 07/2019. Patient is postmenopausal. Family history of breast cancer at age 50 or over in mother, colorectal cancer at age 50 or over in maternal grandmother. No Hormone Replacement Therapy Digital Woman Screen Mammo: November 03, 2019 - Exam #: [id number] Bilateral CC and MLO view(s) were taken. Technologist: Allie Mccoy, Technologist Prior study comparison: October 28, 2018, bilateral digital woman screen mammo performed at [facility]. October 25, 2017, digital woman screen mammo performed at [facility]. April 28, 2016, digital woman screen mammo performed at [facility]. FINDINGS: There are scattered fibroglandular densities. There has been no change in the appearance of the mammogram from the prior studies. There is a mild amount of scattered fibroglandular density which is fairly symmetric. There is no interval development of dominant mass, architectural distortion, or grouped microcalcification suggestive of malignancy. 3-D tomosynthesis shows no additional findings. Assessment: BI-RADS/ACR category 1 mammogram. Negative Mammogram. Recommendation Routine screening mammogram of both breasts in 1 year (for women over age 40). This patient's Lifetime Breast Cancer Risk is estimated at 8.4 %. This mammogram was interpreted with the aid of an FDA-approved computer-aided dectection system. Electronically Signed By: Milton Florentino MD 11/03/19 [id number]
== END ==
LOC: M WHC 15:31
PROVIDERS: ATTEND Nurse Practitioner Family
DX: Z12.31 Encounter for screening mammogram for malignant neoplasm of breast (principal)

== ENCOUNTER → 2019-11-04 | Outpatient (CLI) | payer MEDICARE, MEDICAID ==
--- NOTE | 2019-11-06 09:20 | REP ---
MRI RIGHT HIP WITHOUT CONTRAST: HISTORY: Pain in the right hip. Low back surgery, lumbar fusion, April 08, 2019. Right hip pain radiating down the leg to the knee. No comparison imaging. TECHNIQUE: Axial, coronal, and sagittal imaging planes are utilized for small field of view T2-fat sat images of the right hip. In addition, coronal T1- and T2-fat sat images of both hips are acquired. FINDINGS: The uterus is tipped to the left but appears intact. Urinary bladder extends somewhat atypically into the right pelvis, but this does not appear to represent a bladder hernia, and no pelvic mass lesion is seen. This is felt to be normal variant. There is post lumbar spine fusion surgical donor site defect in the right posterior iliac crest, this is well circumscribed without adjacent edema, consistent with healing. It measures 2.8 x 1.1 cm on coronal images. The SI joints are intact. Bony pelvic ring is otherwise intact. There is no evidence of hip joint effusion. There is no evidence of avascular necrosis of either hip. There is mild acetabular spurring present bilaterally at the hips, consistent with osteoarthritis. Mild tendon insertion site spurring is seen on both greater trochanters. There is subtle soft tissue edema in the soft tissues adjacent to the greater trochanters which may reflect tendonitis. There is no bursal fluid collection visible on either side. Mild superior symphysis spurring is seen. IMPRESSION: Mild bilateral hip joint osteoarthritis. There is bilateral greater trochanteric tendon insertion site spurring and some edema consistent with tendonitis. Otherwise negative. Electronically Signed by Toño Florentino MD 11/06/2019 11:05 A
== END ==
LOC: M RAD 14:01
PROVIDERS: ATTEND Physician Assistant
DX: M16.11 Unilateral primary osteoarthritis, right hip (principal)

== ENCOUNTER → 2019-11-07 | Outpatient (CLI) | payer MEDICARE, MEDICAID ==
[2019-11-07 13:05] LABS: ALT/SGPT 37 U/L (12-78); BILIRUBIN,TOTAL 0.6 MG/DL (0.2-1.0); BLOOD UREA NITROGEN 20 MG/DL (7-18); CALCIUM LEVEL 9.2 MG/DL (8.8-10.2); CARBON DIOXIDE LEVEL 30 MEQ/L (21-32); CHLORIDE LEVEL 109 MEQ/L (98-107); CHOLESTEROL LEVEL 205 MG/DL (<200); CHOLESTEROL RISK RATIO 2.329 (<5); CREATININE FOR GFR 0.81 MG/DL (0.55-1.30); FREE T4 0.99 NG/DL (0.76-1.46); GLOMERULAR FILTRATION RATE > 60.0 (>45); GLUCOSE, FASTING 92 MG/DL (70-100); HDL CHOLESTEROL 88 MG/DL (>40); LDL CHOLESTEROL 96 MG/DL (<100); NON-HDL-C 117 MG/DL; POTASSIUM SERUM 4.8 MEQ/L (3.5-5.1); SODIUM LEVEL 143 MEQ/L (136-145); TOTAL PROTEIN 7.2 GM/DL (6.4-8.2); TRIGLYCERIDES LEVEL 105 MG/DL (<150)
== END ==
LOC: M PLALAB 10:45
PROVIDERS: ATTEND Nurse Practitioner Family
DX: E03.9 Hypothyroidism, unspecified (principal); E78.2 Mixed hyperlipidemia; E55.9 Vitamin D deficiency, unspecified

== ENCOUNTER → 2020-03-01 | Outpatient (CLI) | payer MEDICARE, MEDICAID ==
[~2020-03-01] MED LIST changes: +[UNRECOGNIZED DRUG - CODE] PO; -[UNRECOGNIZED DRUG - OTHER] PO
[2020-03-01 12:27] LABS: BLOOD UREA NITROGEN 17 MG/DL (7-18); CREATININE FOR GFR 0.74 MG/DL (0.55-1.30); GLOMERULAR FILTRATION RATE > 60.0 (>45)
== END ==
LOC: M PLALAB 10:58
PROVIDERS: ATTEND Physician Assistant
DX: M54.5 Low back pain (principal)

== ENCOUNTER → 2020-05-07 | Outpatient (REF) | payer MEDICARE, MEDICAID ==
[~2020-05-07] MED LIST changes: +ACET650T61 PO; -TYLE650T35 PO
[2020-07-01 04:54] LABS: ALBUMIN 3.8 GM/DL (3.2-5.2); ALT/SGPT 33 U/L (12-78); BILIRUBIN,TOTAL 0.8 MG/DL (0.2-1.0); BLOOD UREA NITROGEN 17 MG/DL (7-18); CALCIUM LEVEL 9.6 MG/DL (8.8-10.2); CARBON DIOXIDE LEVEL 30 MEQ/L (21-32); CHLORIDE LEVEL 106 MEQ/L (98-107); CREATININE FOR GFR 0.92 MG/DL (0.55-1.30); FREE T4 1.07 NG/DL (0.76-1.46); GLOMERULAR FILTRATION RATE > 60.0 (>45); GLUCOSE, FASTING 93 MG/DL (70-100); POTASSIUM SERUM 4.4 MEQ/L (3.5-5.1); SODIUM LEVEL 141 MEQ/L (136-145); TOTAL PROTEIN 7.3 GM/DL (6.4-8.2)
== END ==
LOC: M SFHCPLAZ 11:40
PROVIDERS: ATTEND Nurse Practitioner Family
DX: E78.2 Mixed hyperlipidemia (principal); E03.9 Hypothyroidism, unspecified

== ENCOUNTER → 2020-07-30 | Outpatient (CLI) | payer MEDICARE, MEDICAID ==
[2020-07-30 13:55] LABS: ALBUMIN 3.7 GM/DL (3.2-5.2); ALT/SGPT 37 U/L (12-78); BILIRUBIN,TOTAL 0.6 MG/DL (0.2-1.0); BLOOD UREA NITROGEN 20 MG/DL (7-18); CALCIUM LEVEL 9.6 MG/DL (8.8-10.2); CARBON DIOXIDE LEVEL 29 MEQ/L (21-32); CHLORIDE LEVEL 106 MEQ/L (98-107); CHOLESTEROL LEVEL 224 MG/DL (<200); CHOLESTEROL RISK RATIO 2.604 (<5); CREATININE FOR GFR 0.85 MG/DL (0.55-1.30); FREE T4 1.02 NG/DL (0.76-1.46); GLOMERULAR FILTRATION RATE > 60.0 (>45); GLUCOSE, FASTING 94 MG/DL (70-100); HDL CHOLESTEROL 86 MG/DL (>40); LDL CHOLESTEROL 124 MG/DL (<100); NON-HDL-C 138 MG/DL; POTASSIUM SERUM 4.4 MEQ/L (3.5-5.1); SODIUM LEVEL 141 MEQ/L (136-145); TRIGLYCERIDES LEVEL 71 MG/DL (<150)
[2020-07-30 13:56] LABS: TOTAL 25(OH) VITAMIN D 38.9 NG/ML (30.0-100.0)
== END ==
LOC: M PLALAB 10:57
PROVIDERS: ATTEND Nurse Practitioner Family
DX: E78.2 Mixed hyperlipidemia (principal); E03.9 Hypothyroidism, unspecified; E55.9 Vitamin D deficiency, unspecified

== ENCOUNTER → 2020-11-01 | Outpatient (REF) | payer MEDICARE, MEDICAID ==
[~2020-11-01] MED LIST changes: +GABA-282 PO; -GABA-843 PO; +MONT10TA10 PO; -MONT10TA4 PO
[2020-11-01 14:36] LABS: ALT/SGPT 36 U/L (12-78); BILIRUBIN,TOTAL 0.5 MG/DL (0.2-1.0); BLOOD UREA NITROGEN 23 MG/DL (7-18); CALCIUM LEVEL 10.1 MG/DL (8.8-10.2); CARBON DIOXIDE LEVEL 30 MEQ/L (21-32); CHLORIDE LEVEL 106 MEQ/L (98-107); CREATININE FOR GFR 0.95 MG/DL (0.55-1.30); FREE T4 1.13 NG/DL (0.76-1.46); GLOMERULAR FILTRATION RATE > 60.0 (>45); GLUCOSE, FASTING 92 MG/DL (70-100); MAGNESIUM LEVEL 2.1 MG/DL (1.8-2.4); SODIUM LEVEL 142 MEQ/L (136-145); TOTAL PROTEIN 7.5 GM/DL (6.4-8.2)
== END ==
LOC: M PLALAB 10:48
PROVIDERS: ATTEND Nurse Practitioner Family
DX: E78.2 Mixed hyperlipidemia (principal); E03.9 Hypothyroidism, unspecified; K21.9 Gastro-esophageal reflux disease without esophagitis

== ENCOUNTER → 2021-02-28 | Outpatient (CLI) | payer MEDICARE, MEDICAID ==
--- NOTE | 2021-03-03 10:45 | REPMRS ---
Patient History The patient states she had a clinical breast exam in 10/2020. Family history of breast cancer at age 50 or over in mother, colorectal cancer at age 50 or over in maternal grandmother. No Hormone Replacement Therapy Patient states no breast complaints today. Patient has signed MRS History Sheet. Digital Woman Screen Mammo: February 28, 2021 - Exam #: [id number] Bilateral CC and MLO view(s) were taken. Technologist: Allie Mccoy, Technologist Prior study comparison: November 03, 2019, bilateral digital woman screen mammo performed at [facility]. October 28, 2018, bilateral digital woman screen mammo performed at [facility]. FINDINGS: There are scattered fibroglandular densities. Screening. Digital screening (2D) mammography was performed bilaterally in the CC and MLO projections. Additionally, breast tomosynthesis (3D mammography) was performed bilaterally in the CC and MLO projections. Todays exam was compared to the prior exam/exams. By history, the patient has no complaints of a palpable breast abnormality or other significant breast complaints. The breasts are unchanged in size and shape. There are no elroy-soft tissue densities or spiculated masses. There is no internal architectural distortion. There are no suspicious elroy-calcific clusters. Skin thickening or nipple retraction is not present. IMPRESSION: The [place] volumetric breast density category is B, there are scattered areas of fibroglandular densities. BI-RADS Category 2- Benign Findings. There is no evidence of malignant alteration of the breasts. Followup examination recommended in one year. The lifetime Tyrer-Cuzick score is 8.0 % This mammogram was read with the assistance of [employer],an FDA approved computer aided detection system for mammography. Negative x-ray reports should not delay surgical consultation if a dominant or clinically suspicious mass is present. Not all breast cancers can be identified by mammography. Therefore, we recommend that you continue to perform regular breast self-examination and physical examination and then promptly contact your physician of any concerns or changes. Adenosis and dense breasts may obscure an underlying neoplasm. Assessment: BI-RADS/ACR category 2 mammogram. Benign Findings. Recommendation Routine screening mammogram of both breasts in 1 year. Electronically Signed By: Kevin Huerta DO 03/03/21 [id number]
== END ==
LOC: M WHC 16:37
PROVIDERS: ATTEND Nurse Practitioner Family
DX: Z12.31 Encounter for screening mammogram for malignant neoplasm of breast (principal)

== ENCOUNTER → 2022-03-19 | Outpatient (CLI) | payer MEDICARE, MEDICAID ==
[~2022-03-19] MED LIST changes: +ALBU2.5V10 INH; -ALBU83IN INH; +ARIP10TA32 PO; -ARIP1TAB PO; -MONT10TA10 PO; +MONT10TA97 PO
[2022-03-19 14:03] LABS: BASO # 0.1 10^3/uL (0.0-0.2); BASO % 1.1 % (0.0-1.0); EOS # 0.4 10^3/uL (0.0-0.5); EOS % 6.3 % (0.0-3.0); HEMATOCRIT 40.2 % (36.0-47.0); HEMOGLOBIN 12.8 g/dl (12.0-15.5); LYMPH # 1.6 10^3/uL (1.5-5.0); LYMPH % 25.1 % (24.0-44.0); MEAN CORPUSCULAR HEMOGLOBIN 30.7 pg (27.0-33.0); MEAN CORPUSCULAR HGB CONC 31.8 g/dl (32.0-36.5); MEAN CORPUSCULAR VOLUME 96.4 fl (80.0-96.0); MONO # 0.7 10^3/uL (0.0-0.8); MONO % 10.3 % (2.0-8.0); NEUTROPHILS # 3.6 10^3/uL (1.5-8.5); PLATELET COUNT, AUTOMATED 277 10^3/uL (150-450); RED BLOOD COUNT 4.17 10^6/uL (4.00-5.40); WHITE BLOOD COUNT 6.3 10^3/uL (4.0-10.0)
[2022-03-19 14:26] LABS: ALBUMIN 4.1 GM/DL (3.2-5.2); ALT/SGPT 25 U/L (12-78); BLOOD UREA NITROGEN 21 MG/DL (7-18); CALCIUM LEVEL 10.2 MG/DL (8.8-10.2); CARBON DIOXIDE LEVEL 30 MEQ/L (21-32); CHLORIDE LEVEL 110 MEQ/L (98-107); CHOLESTEROL LEVEL 218 MG/DL (<200); CHOLESTEROL RISK RATIO 2.759 (<5); CREATININE FOR GFR 0.87 MG/DL (0.55-1.30); GLOMERULAR FILTRATION RATE > 60.0 (>45); GLUCOSE, FASTING 98 MG/DL (70-100); HDL CHOLESTEROL 79 MG/DL (>40); LDL CHOLESTEROL 119 MG/DL (<100); NON-HDL-C 139 MG/DL; POTASSIUM SERUM 4.2 MEQ/L (3.5-5.1); SODIUM LEVEL 143 MEQ/L (136-145); TOTAL PROTEIN 6.5 GM/DL (6.4-8.2); TRIGLYCERIDES LEVEL 101 MG/DL (<150)
[2022-03-19 14:34] LABS: TOTAL 25(OH) VITAMIN D 49.4 NG/ML (30.0-100.0)
[2022-03-19 14:45] LABS: HEMOGLOBIN A1c 5.1 %
== END ==
LOC: M PLALAB 10:55
PROVIDERS: ATTEND Physician Assistant Medical
DX: E55.9 Vitamin D deficiency, unspecified (principal); Z68.39 Body mass index [BMI] 39.0-39.9, adult; E78.2 Mixed hyperlipidemia; J45.21 Mild intermittent asthma with (acute) exacerbation; Z79.899 Other long term (current) drug therapy

== ENCOUNTER → 2022-06-04 | Outpatient (CLI) | payer MEDICARE, MEDICAID | LOC: M WHC 07:01 | PROVIDERS: ATTEND Physician Assistant Medical | DX: Z12.31 Encounter for screening mammogram for malignant neoplasm of breast (principal) ==

== ENCOUNTER → 2022-10-14 | Outpatient (CLI) | payer MEDICARE, MEDICAID ==
[2022-10-14 11:37] LABS: FREE T4 1.41 NG/DL (0.89-1.76)
[2022-10-14 11:55] LABS: THYROID STIMULATING HORMONE 2.024 uIU/ML (0.55-4.78)
== END ==
LOC: M PLALAB 08:34
PROVIDERS: ATTEND Physician Assistant Medical
DX: E03.9 Hypothyroidism, unspecified (principal)

== ENCOUNTER → 2023-03-10 | Outpatient (REF) | payer MEDICARE, MEDICAID ==
[2023-03-10 13:39] LABS: BASO # 0.1 10^3/uL (0.0-0.2); BASO % 0.7 % (0.0-1.0); EOS # 0.2 10^3/uL (0.0-0.5); EOS % 2.6 % (0.0-3.0); HEMATOCRIT 38.5 % (36.0-47.0); HEMOGLOBIN 12.4 g/dl (12.0-15.5); LYMPH # 1.4 10^3/uL (1.5-5.0); LYMPH % 18.7 % (24.0-44.0); MEAN CORPUSCULAR HEMOGLOBIN 30.8 pg (27.0-33.0); MEAN CORPUSCULAR HGB CONC 32.2 g/dl (32.0-36.5); MEAN CORPUSCULAR VOLUME 95.8 fl (80.0-96.0); MONO # 0.7 10^3/uL (0.0-0.8); MONO % 9.3 % (2.0-8.0); NEUTROPHILS # 5.2 10^3/uL (1.5-8.5); NEUTROPHILS % 68.4 % (36.0-66.0); PLATELET COUNT, AUTOMATED 273 10^3/uL (150-450); RED BLOOD COUNT 4.02 10^6/uL (4.00-5.40); WHITE BLOOD COUNT 7.6 10^3/uL (4.0-10.0)
[2023-03-10 13:55] LABS: AMORPHOUS SEDIMENT SMALL (NEGATIVE); APPEARANCE, URINE CLOUDY (CLEAR); BACTERIA, URINE AUTO NEGATIVE (NEGATIVE); BILIRUBIN, URINE AUTO NEGATIVE (NEGATIVE); BLOOD, URINE BLOOD 1+ (NEGATIVE); COLOR, URINE YELLOW (YELLOW); GLUCOSE, URINE (UA) AUTO NEGATIVE (NEGATIVE); KETONE, URINE AUTO 1+ mg/dL (NEGATIVE); LEUKOCYTE ESTERASE, URINE AUTO 1+ (NEGATIVE); MUCUS, URINE SMALL (NEGATIVE); NITRITE, URINE AUTO NEGATIVE (NEGATIVE); PROTEIN, URINE AUTO NEGATIVE (NEGATIVE); RBC, URINE AUTO 8 /HPF (0-3); SPECIFIC GRAVITY URINE AUTO 1.017 (1.002-1.035); SQUAMOUS EPITHELIAL CELL UR AU 7 /HPF (0-6); UROBILINOGEN, URINE AUTO 0.2 mg/dL (0.0-2.0); WBC, URINE AUTO 21 /HPF (0-3)
[2023-03-10 14:00] LABS: HEMATOCRIT 38.5 % (36.0-47.0)
[2023-03-10 14:02] LABS: FREE T4 1.26 NG/DL (0.89-1.76); VITAMIN B12 LEVEL 708 PG/ML (211-911)
[2023-03-10 14:03] LABS: THYROID STIMULATING HORMONE 0.798 uIU/ML (0.55-4.78)
[2023-03-10 14:06] LABS: ALBUMIN 4.1 G/DL (3.2-5.2); ALKALINE PHOSPHATASE 66 U/L (46-116); ALT/SGPT 18 U/L (7.0-40); AST/SGOT 13 U/L (<34); BILIRUBIN,TOTAL 0.8 MG/DL (0.3-1.2); BLOOD UREA NITROGEN 20 MG/DL (9-23); CALCIUM LEVEL 9.1 MG/DL (8.3-10.6); CARBON DIOXIDE LEVEL 26 MMOL/L (20-31); CHLORIDE LEVEL 107 MMOL/L (98-107); CHOLESTEROL LEVEL 199 MG/DL (<200); CHOLESTEROL RISK RATIO 2.67 (<5); CPK CREATINE PHOSPHOKINASE 208 U/L (34-145); CREATININE FOR GFR 0.75 MG/DL (0.55-1.30); GLOMERULAR FILTRATION RATE > 60.0 (>45); GLUCOSE, FASTING 87 MG/DL (74-106); HDL CHOLESTEROL 74.3 MG/DL (>40); LDL CHOLESTEROL 105.5 MG/DL (<100); NON-HDL-C 124.7 MG/DL; POTASSIUM SERUM 3.8 MMOL/L (3.5-5.1); PTH INTACT 31.8 PG/ML (18.5-88.0); SODIUM LEVEL 141 MMOL/L (136-145); TRIGLYCERIDES LEVEL 96 MG/DL (<150)
[2023-03-10 14:19] LABS: HEMOGLOBIN A1c 5.1 % (4.0-6.0)
== END ==
LOC: M SFHCPLAZ 09:01
PROVIDERS: ATTEND Physician Assistant Medical
DX: E78.2 Mixed hyperlipidemia (principal); E55.9 Vitamin D deficiency, unspecified; E03.9 Hypothyroidism, unspecified; D75.89 Other specified diseases of blood and blood-forming organs; Z68.31 Body mass index [BMI] 31.0-31.9, adult; N32.81 Overactive bladder; Z79.899 Other long term (current) drug therapy

== ENCOUNTER → 2023-07-08 | Outpatient (REF) | payer MEDICARE, MEDICAID ==
[2023-07-08 15:00] LABS: APPEARANCE, URINE CLEAR (CLEAR); BACTERIA, URINE AUTO NEGATIVE (NEGATIVE); BILIRUBIN, URINE AUTO NEGATIVE (NEGATIVE); BLOOD, URINE BLOOD NEGATIVE (NEGATIVE); COLOR, URINE YELLOW (YELLOW); GLUCOSE, URINE (UA) AUTO NEGATIVE (NEGATIVE); KETONE, URINE AUTO NEGATIVE (NEGATIVE); LEUKOCYTE ESTERASE, URINE AUTO NEGATIVE (NEGATIVE); MUCUS, URINE SMALL (NEGATIVE); NITRITE, URINE AUTO NEGATIVE (NEGATIVE); PROTEIN, URINE AUTO NEGATIVE (NEGATIVE); RBC, URINE AUTO 1 /HPF (0-3); SPECIFIC GRAVITY URINE AUTO 1.027 (1.002-1.035); SQUAMOUS EPITHELIAL CELL UR AU 4 /HPF (0-6); UROBILINOGEN, URINE AUTO 0.2 mg/dL (0.0-2.0); WBC, URINE AUTO 1 /HPF (0-3)
== END ==
LOC: M SFHCPLAZ 13:11
PROVIDERS: ATTEND Physician Assistant Medical
DX: N39.0 Urinary tract infection, site not specified (principal)

== ENCOUNTER → 2023-10-18 | Outpatient (CLI) | payer MEDICARE, MEDICAID ==
[2023-10-18 15:54] LABS: BASO % 0.6 % (0.0-1.0); EOS # 0.1 10^3/uL (0.0-0.5); EOS % 1.9 % (0.0-3.0); HEMATOCRIT 39.4 % (36.0-47.0); HEMOGLOBIN 12.5 g/dl (12.0-15.5); LYMPH # 1.4 10^3/uL (1.5-5.0); LYMPH % 27.8 % (24.0-44.0); MEAN CORPUSCULAR HEMOGLOBIN 30.1 pg (27.0-33.0); MEAN CORPUSCULAR HGB CONC 31.7 g/dl (32.0-36.5); MEAN CORPUSCULAR VOLUME 94.9 fl (80.0-96.0); MONO # 0.5 10^3/uL (0.0-0.8); MONO % 9.3 % (2.0-8.0); NEUTROPHILS # 3.1 10^3/uL (1.5-8.5); NEUTROPHILS % 60.2 % (36.0-66.0); PLATELET COUNT, AUTOMATED 273 10^3/uL (150-450); RED BLOOD COUNT 4.15 10^6/uL (4.00-5.40); WHITE BLOOD COUNT 5.2 10^3/uL (4.0-10.0)
[2023-10-18 16:21] LABS: HEMOGLOBIN A1c 5.2 % (4.0-6.0)
[2023-10-18 16:27] LABS: APPEARANCE, URINE CLOUDY (CLEAR); BACTERIA, URINE AUTO NEGATIVE (NEGATIVE); BILIRUBIN, URINE AUTO NEGATIVE (NEGATIVE); BLOOD, URINE BLOOD NEGATIVE (NEGATIVE); COLOR, URINE AMBER (YELLOW); GLUCOSE, URINE (UA) AUTO NEGATIVE (NEGATIVE); KETONE, URINE AUTO 2+ mg/dL (NEGATIVE); LEUKOCYTE ESTERASE, URINE AUTO TRACE (NEGATIVE); MUCUS, URINE SMALL (NEGATIVE); NITRITE, URINE AUTO NEGATIVE (NEGATIVE); PROTEIN, URINE AUTO 1+ mg/dL (NEGATIVE); RBC, URINE AUTO 7 /HPF (0-3); SPECIFIC GRAVITY URINE AUTO 1.038 (1.002-1.035); SQUAMOUS EPITHELIAL CELL UR AU 9 /HPF (0-6); UROBILINOGEN, URINE AUTO 0.2 mg/dL (0.0-2.0); WBC, URINE AUTO 8 /HPF (0-3)
[2023-10-18 16:44] LABS: ALBUMIN 3.9 G/DL (3.2-5.2); ALKALINE PHOSPHATASE 66 U/L (46-116); ALT/SGPT 25 U/L (7.0-40); AST/SGOT 20 U/L (<34); BILIRUBIN,TOTAL 0.6 MG/DL (0.3-1.2); BLOOD UREA NITROGEN 18 MG/DL (9-23); CARBON DIOXIDE LEVEL 28 MMOL/L (20-31); CHLORIDE LEVEL 109 MMOL/L (98-107); CREATININE FOR GFR 0.72 MG/DL (0.55-1.30); GLOMERULAR FILTRATION RATE > 60.0 (>39); GLUCOSE, FASTING 80 MG/DL (74-106); SODIUM LEVEL 144 MMOL/L (136-145); TOTAL PROTEIN 6.7 G/DL (5.7-8.2)
== END ==
LOC: M PLALAB 12:47
PROVIDERS: ATTEND Physician Assistant Medical
DX: R35.0 Frequency of micturition (principal); R82.4 Acetonuria; R31.29 Other microscopic hematuria; Z79.899 Other long term (current) drug therapy

== ENCOUNTER 2024-02-20 18:17 | Emergency (ER) | payer MEDICARE, MEDICAID ==
[~2024-02-20] VITALS: Ht 160 cm; Wt 65.3 kg
[2024-02-20] MEDS: ACETAMINOPHEN 325 MG TAB PO ONE (20:25)
[2024-02-20 20:53] LABS: BASO % 0.6 % (0.0-1.0); EOS # 0.2 10^3/uL (0.0-0.5); EOS % 2.7 % (0.0-3.0); HEMATOCRIT 34.6 % (36.0-47.0); HEMOGLOBIN 10.9 g/dl (12.0-15.5); LYMPH # 1.3 10^3/uL (1.5-5.0); LYMPH % 18.9 % (24.0-44.0); MEAN CORPUSCULAR HEMOGLOBIN 29.3 pg (27.0-33.0); MEAN CORPUSCULAR HGB CONC 31.5 g/dl (32.0-36.5); MONO # 0.9 10^3/uL (0.0-0.8); MONO % 12.2 % (2.0-8.0); NEUTROPHILS # 4.5 10^3/uL (1.5-8.5); NEUTROPHILS % 65.3 % (36.0-66.0); PLATELET COUNT, AUTOMATED 332 10^3/uL (150-450); RED BLOOD COUNT 3.72 10^6/uL (4.00-5.40); WHITE BLOOD COUNT 6.9 10^3/uL (4.0-10.0)
[2024-02-20 21:09] LABS: INR 1.08; PROTHROMBIN TIME 13.7 SECONDS (12.5-14.5)
[2024-02-20 21:18] LABS: BLOOD UREA NITROGEN 20 MG/DL (9-23); CALCIUM LEVEL 9.2 MG/DL (8.3-10.6); CARBON DIOXIDE LEVEL 29 MMOL/L (20-31); CHLORIDE LEVEL 113 MMOL/L (98-107); GLOMERULAR FILTRATION RATE > 60.0 (>39); GLUCOSE, FASTING 118 MG/DL (74-106); MAGNESIUM LEVEL 2.3 MG/DL (1.8-2.4); POTASSIUM SERUM 3.8 MMOL/L (3.5-5.1); SODIUM LEVEL 146 MMOL/L (136-145)
[2024-02-20] MEDS: methylPREDNISolone 125MG 2ML VIAL IV ONE (21:30)
[2024-02-20] MEDS ORDERED: ISOVUE-370 76% 100ML VIAL As Ordered ONE (22:40)
[2024-02-21 02:00] VITALS: BP 153/72; TEMP 98.4; O2SAT 93
[2024-02-21] MEDS: BACITRACIN OINTMENT 30GM TUBE TOP ONE (02:30)
[2024-02-21] MEDS: LIDOCAINE 2% MDV 20ML VIAL SC SCH (02:40)
== END 2024-02-21 02:40 | disposition short-term general hospital (02) ==
LOC: M ED 18:17 → EDBD 18:17 → M ED 02-21 02:40
DX: S01.81XA Laceration without foreign body of other part of head, initial encounter (principal); M48.02 Spinal stenosis, cervical region; W18.30XA Fall on same level, unspecified, initial encounter; R53.1 Weakness; M48.061 Spinal stenosis, lumbar region without neurogenic claudication; M25.78 Osteophyte, vertebrae; M51.26 Other intervertebral disc displacement, lumbar region; Y92.009 Unspecified place in unspecified non-institutional (private) residence as the place of occurrence of the external cause; Y93.89 Activity, other specified; Y99.9 Unspecified external cause status; Z88.6 Allergy status to analgesic agent; Z88.8 Allergy status to other drugs, medicaments and biological substances; Z79.52 Long term (current) use of systemic steroids; Z79.899 Other long term (current) drug therapy; Z79.1 Long term (current) use of non-steroidal anti-inflammatories (NSAID)
CPT/HCPCS: 70450; 70496; 70498; 72125; 72131; 80048; 83735; 85025; 85610; 85730; 96374; 99284; J2919; Q9967

== ENCOUNTER → 2024-03-30 | Outpatient (REF) ==
[2024-03-30 14:19] LABS: HEMATOCRIT 24.8 % (36.0-47.0); HEMOGLOBIN 7.6 g/dl (12.0-15.5); MEAN CORPUSCULAR HEMOGLOBIN 27.5 pg (27.0-33.0); MEAN CORPUSCULAR HGB CONC 30.6 g/dl (32.0-36.5); MEAN CORPUSCULAR VOLUME 89.9 fl (80.0-96.0); PLATELET COUNT, AUTOMATED 436 10^3/uL (150-450); RED BLOOD COUNT 2.76 10^6/uL (4.00-5.40)
[2024-03-30 14:46] LABS: BLOOD UREA NITROGEN 13 MG/DL (9-23); CALCIUM LEVEL 8.6 MG/DL (8.3-10.6); CARBON DIOXIDE LEVEL 26 MMOL/L (20-31); CHLORIDE LEVEL 104 MMOL/L (98-107); CREATININE FOR GFR 0.51 MG/DL (0.55-1.30); GLOMERULAR FILTRATION RATE > 60.0 (>39); GLUCOSE, FASTING 64 MG/DL (74-106); POTASSIUM SERUM 4.7 MMOL/L (3.5-5.1); SODIUM LEVEL 138 MMOL/L (136-145)
== END ==
PROVIDERS: ATTEND Physician Assistant
DX: I48.91 Unspecified atrial fibrillation (principal)

== ENCOUNTER → 2024-04-03 | Outpatient (REF) ==
[2024-04-03 19:25] LABS: MAGNESIUM LEVEL 2.2 MG/DL (1.8-2.4)
[2024-04-03 19:26] LABS: IRON (FE) 10 UG/DL (50-170); PERCENT SATURATION 4.1 % (13.2-45.0); TOTAL IRON BINDING CAPACITY 244 UG/DL (250-425)
[2024-04-03 19:29] LABS: FERRITIN 105.9 NG/ML (7.3-270.7); FOLATE > 24.00 NG/ML (>5.4); VITAMIN B12 LEVEL 368 PG/ML (211-911)
== END ==
PROVIDERS: ATTEND Physician Assistant
DX: D64.9 Anemia, unspecified (principal)

== ENCOUNTER → 2024-04-04 | Outpatient (REF) ==
[2024-04-04 11:36] LABS: BASO % 0.5 % (0.0-1.0); EOS # 0.3 10^3/uL (0.0-0.5); EOS % 4.2 % (0.0-3.0); HEMATOCRIT 24.6 % (36.0-47.0); HEMOGLOBIN 7.4 g/dl (12.0-15.5); LYMPH # 1.7 10^3/uL (1.5-5.0); LYMPH % 22.8 % (24.0-44.0); MEAN CORPUSCULAR HEMOGLOBIN 26.5 pg (27.0-33.0); MEAN CORPUSCULAR HGB CONC 30.1 g/dl (32.0-36.5); MEAN CORPUSCULAR VOLUME 88.2 fl (80.0-96.0); MONO # 0.8 10^3/uL (0.0-0.8); MONO % 11.1 % (2.0-8.0); NEUTROPHILS # 4.4 10^3/uL (1.5-8.5); NEUTROPHILS % 60.2 % (36.0-66.0); PLATELET COUNT, AUTOMATED 486 10^3/uL (150-450); RED BLOOD COUNT 2.79 10^6/uL (4.00-5.40); WHITE BLOOD COUNT 7.3 10^3/uL (4.0-10.0)
== END ==
PROVIDERS: ATTEND Physician Assistant
DX: D64.9 Anemia, unspecified (principal)

== ENCOUNTER 2024-04-05 11:06 | Outpatient (REF) | payer MEDICAID, MEDICARE ==
[2024-04-05] VITALS (7 sets, daily range): BP systolic 111–136; BP diastolic 55–78; TEMP 98–98.8; O2SAT 95–98
[~2024-04-05 11:06] MED LIST changes: +ACETAMINOPHEN 650MG PO PRIOR TO INFUSION PO ONE; +diphenhydrAMINE 25MG PO PRIOR TO INFUSION PO ONE
[2024-04-05] MEDS: ACETAMINOPHEN 650MG PO PRIOR TO INFUSION PO ONE (12:35)
[2024-04-05] MEDS: diphenhydrAMINE 25MG PO PRIOR TO INFUSION PO ONE (12:36)
== END 2024-04-05 18:10 ==
LOC: M INFU 11:06 → EDSTATUS 11:30 → M INFU 18:10
PROVIDERS: ATTEND Physician Assistant
DX: D64.9 Anemia, unspecified (principal); Z88.8 Allergy status to other drugs, medicaments and biological substances

== ENCOUNTER → 2024-04-05 | Outpatient (REF) | LOC: M RAD 11:15 | PROVIDERS: ATTEND Physician Assistant | DX: M43.26 Fusion of spine, lumbar region (principal) ==

== ENCOUNTER → 2024-04-05 | Outpatient (REF) | PROVIDERS: ATTEND Physician Assistant | DX: K92.2 Gastrointestinal hemorrhage, unspecified (principal) ==

== ENCOUNTER → 2024-04-06 | Outpatient (REF) ==
[~2024-04-06] MED LIST changes: -ACETAMINOPHEN 650MG PO PRIOR TO INFUSION PO ONE; -diphenhydrAMINE 25MG PO PRIOR TO INFUSION PO ONE
[2024-04-06 15:46] LABS: MEAN CORPUSCULAR HEMOGLOBIN 26.9 pg (27.0-33.0); MEAN CORPUSCULAR HGB CONC 30.6 g/dl (32.0-36.5); MEAN CORPUSCULAR VOLUME 87.8 fl (80.0-96.0); PLATELET COUNT, AUTOMATED 535 10^3/uL (150-450); RED BLOOD COUNT 3.53 10^6/uL (4.00-5.40); WHITE BLOOD COUNT 7.8 10^3/uL (4.0-10.0)
[2024-04-06 15:47] LABS: HEMOGLOBIN 9.5 g/dl (12.0-15.5)
== END ==
PROVIDERS: ATTEND Physician Assistant
DX: D64.9 Anemia, unspecified (principal)

== ENCOUNTER → 2024-04-12 | Outpatient (REF) ==
[2024-04-12 10:25] LABS: HEMATOCRIT 32.4 % (36.0-47.0); HEMOGLOBIN 9.7 g/dl (12.0-15.5); MEAN CORPUSCULAR HEMOGLOBIN 26.9 pg (27.0-33.0); MEAN CORPUSCULAR HGB CONC 29.9 g/dl (32.0-36.5); PLATELET COUNT, AUTOMATED 524 10^3/uL (150-450); WHITE BLOOD COUNT 8.2 10^3/uL (4.0-10.0)
== END ==
PROVIDERS: ATTEND Physician Assistant
DX: D64.9 Anemia, unspecified (principal)

== ENCOUNTER → 2024-04-19 | Outpatient (REF) ==
[2024-04-19 11:28] LABS: HEMATOCRIT 32.2 % (36.0-47.0); HEMOGLOBIN 9.8 g/dl (12.0-15.5); MEAN CORPUSCULAR HEMOGLOBIN 27.1 pg (27.0-33.0); MEAN CORPUSCULAR HGB CONC 30.4 g/dl (32.0-36.5); MEAN CORPUSCULAR VOLUME 89.2 fl (80.0-96.0); PLATELET COUNT, AUTOMATED 397 10^3/uL (150-450); RED BLOOD COUNT 3.61 10^6/uL (4.00-5.40)
== END ==
PROVIDERS: ATTEND Physician Assistant
DX: D64.9 Anemia, unspecified (principal)

== ENCOUNTER 2024-04-27 14:54 | Inpatient (IN) | payer MEDICARE, MEDICAID ==
[~2024-04-27] VITALS: Ht 160 cm; Wt 60.9 kg
[2024-04-27 15:31] LABS: VENOUS BASE EXCESS 0.1 (-2.0-2.0); VENOUS HCO3 25.7 MMOL/L (23.0-27.0); VENOUS O2 SATURATION 77.7 % (60.0-80.0); VENOUS PARTIAL PRESSURE O2 43.3 mmHg (30.0-50.0); VENOUS PH 7.365 UNITS (7.330-7.430); VENOUS STANDARD HCO3 24.3 MMOL/L; VENOUS TOTAL CO2 27.1 MMOL/L (24.0-28.0)
[2024-04-27 15:36] LABS: BASO % 0.4 % (0.0-1.0); EOS # 0.1 10^3/uL (0.0-0.5); EOS % 0.8 % (0.0-3.0); HEMATOCRIT 27.1 % (36.0-47.0); HEMOGLOBIN 8.3 g/dl (12.0-15.5); LYMPH # 1.5 10^3/uL (1.5-5.0); LYMPH % 14.4 % (24.0-44.0); MEAN CORPUSCULAR HEMOGLOBIN 27.2 pg (27.0-33.0); MEAN CORPUSCULAR HGB CONC 30.6 g/dl (32.0-36.5); MEAN CORPUSCULAR VOLUME 88.9 fl (80.0-96.0); MONO # 1.3 10^3/uL (0.0-0.8); MONO % 12.8 % (2.0-8.0); NEUTROPHILS # 7.3 10^3/uL (1.5-8.5); NEUTROPHILS % 71.2 % (36.0-66.0); PLATELET COUNT, AUTOMATED 314 10^3/uL (150-450); RED BLOOD COUNT 3.05 10^6/uL (4.00-5.40); WHITE BLOOD COUNT 10.3 10^3/uL (4.0-10.0)
[2024-04-27] MEDS: NS 1,000 ML IV ONE ×2 (15:37→17:47)
[2024-04-27 16:01] LABS: ALBUMIN 2.2 G/DL (3.2-5.2); ALKALINE PHOSPHATASE 111 U/L (46-116); ALT/SGPT 14 U/L (7.0-40); AST/SGOT 18 U/L (<34); BILIRUBIN,DIRECT 0.2 MG/DL (<0.4); BILIRUBIN,TOTAL 0.4 MG/DL (0.3-1.2); BLOOD UREA NITROGEN 32 MG/DL (9-23); CALCIUM LEVEL 8.8 MG/DL (8.3-10.6); CARBON DIOXIDE LEVEL 27 MMOL/L (20-31); CHLORIDE LEVEL 108 MMOL/L (98-107); CREATININE FOR GFR 0.48 MG/DL (0.55-1.30); GLOMERULAR FILTRATION RATE > 60.0 (>39); GLUCOSE, FASTING 148 MG/DL (74-106); POTASSIUM SERUM 4.1 MMOL/L (3.5-5.1); SODIUM LEVEL 140 MMOL/L (136-145)
[2024-04-27 16:03] LABS: THYROID STIMULATING HORMONE 2.464 uIU/ML (0.55-4.78)
[2024-04-27] MEDS ORDERED: ATOR80TA59 PO (17:28)
[2024-04-27] MEDS ORDERED: TOPI25TA10 PO (17:28)
[2024-04-27] MEDS ORDERED: ESSE250T PO (17:28)
[2024-04-27] MEDS ORDERED: OXYC-517 PO ×2 (17:28)
[2024-04-27] MEDS ORDERED: CALC-356 PO (17:28)
[2024-04-27] MEDS ORDERED: GABA-284 PO (17:28)
[2024-04-27] MEDS ORDERED: ACET-897 PO (17:28)
[2024-04-27] MEDS ORDERED: JUVEPOW4 PO (17:28)
[2024-04-27] MEDS ORDERED: LORA-1041 PO (17:28)
[2024-04-27] MEDS ORDERED: MILKSUS3 PO (17:28)
[2024-04-27] MEDS ORDERED: ADVA230A INH (17:28)
[2024-04-27] MEDS ORDERED: VENTAER INH (17:28)
[2024-04-27] MEDS ORDERED: HOME MED LIST COMPLETE! XX SCH (17:40)
[2024-04-27] MEDS: cefTRIAXone SOD 2 GM in D5W MINI-BAG PLUS 50 ML IV ONE (17:46)
[2024-04-27] MEDS ORDERED: MOM 30ML SUSPENSION UDC PO PRN (21:10)
[2024-04-27] MEDS ORDERED: ALBUTEROL 90 MCG/ACT 8GM HFA INHALER INH PRN (21:10)
[2024-04-27] MEDS: oxyCODONE 5MG TAB PO SCH (23:29)
[2024-04-27] MEDS: GABAPENTIN 400MG CAP PO SCH (23:30)
[2024-04-27] MEDS: ATORVASTATIN 20 MG TAB PO SCH (23:30)
[2024-04-27] MEDS: OMEPRAZOLE 20MG CAP PO SCH (23:30)
[2024-04-27] MEDS: busPIRone 5 MG TAB PO SCH (23:30)
[2024-04-27] MEDS: traZODone 50 MG TAB PO SCH (23:31)
[2024-04-27] MEDS: MONTELUKAST 10 MG TAB PO SCH (23:31)
[2024-04-27] MEDS: PRAZOSIN 1 MG CAP PO SCH (23:31)
[2024-04-27] MEDS: BACLOFEN 10 MG TAB PO SCH (23:31)
[2024-04-27] MEDS: LR 1,000 ML IV SCH (23:34)
[2024-04-27] MEDS: ACETAMINOPHEN 500 MG TAB PO SCH (23:35)
[2024-04-27] MEDS: PIPERACILLIN/TAZOBACTAM SOD 4.5 GM in D5W MINI-BAG PLUS 50 ML IV SCH (23:35)
[2024-04-28] VITALS (18 sets, daily range): BP systolic 90–115; BP diastolic 46–60; TEMP 96.8–99.8; O2SAT 89–99
[2024-04-28] MEDS: ZIPRASIDONE 80 MG CAP (GEODON) PO SCH (01:50)
[2024-04-28] MEDS: LEVOTHYROXINE 88MCG TABLET (0.088 MG) PO SCH (06:24)
[2024-04-28 06:50] LABS: HEMATOCRIT 27.2 % (36.0-47.0); HEMOGLOBIN 8.4 g/dl (12.0-15.5); MEAN CORPUSCULAR HEMOGLOBIN 26.8 pg (27.0-33.0); MEAN CORPUSCULAR HGB CONC 30.9 g/dl (32.0-36.5); MEAN CORPUSCULAR VOLUME 86.6 fl (80.0-96.0); PLATELET COUNT, AUTOMATED 261 10^3/uL (150-450); RED BLOOD COUNT 3.14 10^6/uL (4.00-5.40); WHITE BLOOD COUNT 8.4 10^3/uL (4.0-10.0)
[2024-04-28 07:20] LABS: BLOOD UREA NITROGEN 21 MG/DL (9-23); CALCIUM LEVEL 8.6 MG/DL (8.3-10.6); CARBON DIOXIDE LEVEL 27 MMOL/L (20-31); CHLORIDE LEVEL 108 MMOL/L (98-107); CREATININE FOR GFR 0.46 MG/DL (0.55-1.30); GLOMERULAR FILTRATION RATE > 60.0 (>39); GLUCOSE, FASTING 101 MG/DL (74-106); IRON (FE) 5 UG/DL (50-170); MAGNESIUM LEVEL 1.8 MG/DL (1.8-2.4); PERCENT SATURATION 2.4 % (13.2-45.0); POTASSIUM SERUM 3.7 MMOL/L (3.5-5.1); SODIUM LEVEL 139 MMOL/L (136-145); TOTAL IRON BINDING CAPACITY 209 UG/DL (250-425)
[2024-04-28 07:22] LABS: FERRITIN 100.7 NG/ML (7.3-270.7); FOLATE 22.42 NG/ML (>5.4); VITAMIN B12 LEVEL 335 PG/ML (211-911)
[2024-04-28] MEDS: ADVAIR HFA 230/21MCG INHALER INH SCH (07:23)
[2024-04-28] MEDS ORDERED: ENOXAPARIN 40MG/0.4ML SYRINGE (J1650 PER 10MG) SC SCH (09:00)
[2024-04-28] MEDS ORDERED: MOM 30ML SUSPENSION UDC PO SCH (09:00)
[2024-04-28] MEDS: CYANOCOBALAMIN 1,000MCG/ML 1ML VIAL IM SCH (09:00)
[2024-04-28] MEDS: MIRALAX *UNIT DOSE* 17GM PACKET PO SCH (09:32)
[2024-04-28] MEDS: MAGNESIUM OXIDE 400MG TAB (MAG-OX) PO SCH (09:33)
[2024-04-28] MEDS: DULoxetine 30MG CAPSULE (CYMBALTA) PO SCH (09:33)
[2024-04-28] MEDS: SENOKOT S TAB PO SCH (09:33)
[2024-04-28] MEDS: CALCIUM/VITAMIN D 500 MG TAB PO SCH (09:34)
[2024-04-28] MEDS: LORATADINE 10 MG TAB PO SCH (09:35)
[2024-04-28] MEDS: TOPIRAMATE (TopAMAX) 25 MG TAB PO SCH (09:35)
[2024-04-28] MEDS: FOLIC ACID 1MG TAB PO SCH (09:44)
[2024-04-28] MEDS: ARIPiprazole 10 MG TAB PO SCH (12:24)
[2024-04-28] MEDS: NYSTATIN 100,000 UNITS/GM TOPICAL PWD 15GM TOP SCH (12:25)
[2024-04-28] MEDS: CYANOCOBALAMIN 500 MCG TAB PO SCH (14:31)
[2024-04-28 15:33] LABS: BLOOD UREA NITROGEN 18 MG/DL (9-23); CALCIUM LEVEL 8.7 MG/DL (8.3-10.6); CARBON DIOXIDE LEVEL 25 MMOL/L (20-31); CHLORIDE LEVEL 108 MMOL/L (98-107); CREATININE FOR GFR 0.48 MG/DL (0.55-1.30); GLOMERULAR FILTRATION RATE > 60.0 (>39); GLUCOSE, FASTING 124 MG/DL (74-106); POTASSIUM SERUM 3.8 MMOL/L (3.5-5.1); SODIUM LEVEL 140 MMOL/L (136-145)
[2024-04-28] MEDS: IRON SUCROSE 300 MG in NS 250 ML OVER 90 MIN. IV SCH (16:02)
[2024-04-29] VITALS (13 sets, daily range): BP systolic 100–117; BP diastolic 51–62; TEMP 96.9–97.2; O2SAT 89–97
[2024-04-29 05:45] LABS: BASO % 0.4 % (0.0-1.0); EOS # 0.3 10^3/uL (0.0-0.5); EOS % 4.2 % (0.0-3.0); HEMOGLOBIN 8.4 g/dl (12.0-15.5); LYMPH # 0.7 10^3/uL (1.5-5.0); LYMPH % 9.7 % (24.0-44.0); MEAN CORPUSCULAR HEMOGLOBIN 26.9 pg (27.0-33.0); MEAN CORPUSCULAR HGB CONC 31.1 g/dl (32.0-36.5); MEAN CORPUSCULAR VOLUME 86.5 fl (80.0-96.0); MONO # 0.8 10^3/uL (0.0-0.8); NEUTROPHILS # 5.3 10^3/uL (1.5-8.5); NEUTROPHILS % 74.4 % (36.0-66.0); PLATELET COUNT, AUTOMATED 314 10^3/uL (150-450); RED BLOOD COUNT 3.12 10^6/uL (4.00-5.40); WHITE BLOOD COUNT 7.1 10^3/uL (4.0-10.0)
[2024-04-29 06:13] LABS: BLOOD UREA NITROGEN 14 MG/DL (9-23); CALCIUM LEVEL 8.4 MG/DL (8.3-10.6); CARBON DIOXIDE LEVEL 26 MMOL/L (20-31); CHLORIDE LEVEL 108 MMOL/L (98-107); CREATININE FOR GFR 0.47 MG/DL (0.55-1.30); GLOMERULAR FILTRATION RATE > 60.0 (>39); GLUCOSE, FASTING 89 MG/DL (74-106); MAGNESIUM LEVEL 1.9 MG/DL (1.8-2.4); POTASSIUM SERUM 3.4 MMOL/L (3.5-5.1); SODIUM LEVEL 141 MMOL/L (136-145)
[2024-04-29] MEDS ORDERED: IRON SUCROSE 100MG 5ML VIAL IV SCH (09:00)
[2024-04-29] MEDS: POTASSIUM CHLORIDE 10MEQ SR TABLET PO SCH (09:14)
[2024-04-29] MEDS: cefTRIAXone SOD 1 GM in D5W MINI-BAG PLUS 50 ML IV SCH (17:44)
[2024-04-30 03:29] VITALS: BP 121/57; TEMP 97.2; O2SAT 95
[2024-04-30 08:06] VITALS: BP 107/55; TEMP 97.6; O2SAT 93
[2024-04-30 08:52] LABS: BLOOD UREA NITROGEN 10 MG/DL (9-23); CALCIUM LEVEL 8.6 MG/DL (8.3-10.6); CARBON DIOXIDE LEVEL 28 MMOL/L (20-31); CHLORIDE LEVEL 114 MMOL/L (98-107); CREATININE FOR GFR 0.46 MG/DL (0.55-1.30); GLOMERULAR FILTRATION RATE > 60.0 (>39); GLUCOSE, FASTING 79 MG/DL (74-106); MAGNESIUM LEVEL 2.1 MG/DL (1.8-2.4); POTASSIUM SERUM 3.9 MMOL/L (3.5-5.1); SODIUM LEVEL 146 MMOL/L (136-145)
[2024-04-30 11:53] VITALS: BP 114/56; TEMP 97.3; O2SAT 96
[2024-04-30 15:51] VITALS: BP 114/58; TEMP 97.3; O2SAT 96
[2024-04-30 20:00] VITALS: BP 115/55; TEMP 97.8; O2SAT 96
[2024-04-30] MEDS: ACETAMINOPHEN TAB 650MG DOSE (2X325MG) PO PRN (21:52)
[2024-05-01] VITALS (7 sets, daily range): BP systolic 101–148; BP diastolic 50–77; TEMP 97.3–98.7; O2SAT 92–97
[2024-05-01 06:41] LABS: BASO # 0.1 10^3/uL (0.0-0.2); BASO % 0.8 % (0.0-1.0); EOS # 0.3 10^3/uL (0.0-0.5); EOS % 5.3 % (0.0-3.0); HEMOGLOBIN 9.1 g/dl (12.0-15.5); LYMPH # 1.8 10^3/uL (1.5-5.0); LYMPH % 28.9 % (24.0-44.0); MEAN CORPUSCULAR HEMOGLOBIN 26.6 pg (27.0-33.0); MEAN CORPUSCULAR HGB CONC 30.3 g/dl (32.0-36.5); MEAN CORPUSCULAR VOLUME 87.7 fl (80.0-96.0); MONO # 0.8 10^3/uL (0.0-0.8); MONO % 12.1 % (2.0-8.0); NEUTROPHILS # 3.3 10^3/uL (1.5-8.5); NEUTROPHILS % 52.4 % (36.0-66.0); PLATELET COUNT, AUTOMATED 412 10^3/uL (150-450); RED BLOOD COUNT 3.42 10^6/uL (4.00-5.40); WHITE BLOOD COUNT 6.2 10^3/uL (4.0-10.0)
[2024-05-01 07:06] LABS: BLOOD UREA NITROGEN 6 MG/DL (9-23); CALCIUM LEVEL 8.9 MG/DL (8.3-10.6); CARBON DIOXIDE LEVEL 28 MMOL/L (20-31); CHLORIDE LEVEL 111 MMOL/L (98-107); CREATININE FOR GFR 0.49 MG/DL (0.55-1.30); GLOMERULAR FILTRATION RATE > 60.0 (>39); GLUCOSE, FASTING 74 MG/DL (74-106); MAGNESIUM LEVEL 2.1 MG/DL (1.8-2.4); POTASSIUM SERUM 4.5 MMOL/L (3.5-5.1); SODIUM LEVEL 143 MMOL/L (136-145)
[2024-05-01] MEDS: AMPICILLIN SOD/SULBACTAM SOD 3 GM in D5W MINI-BAG PLUS 100 ML IV SCH (10:16)
[2024-05-02 04:00] VITALS: BP 142/74; TEMP 97.5; O2SAT 94
[2024-05-02] MEDS: oxyCODONE 5MG TAB PO PRN (04:01)
[2024-05-02 07:10] LABS: BLOOD UREA NITROGEN 5 MG/DL (9-23); CALCIUM LEVEL 9.1 MG/DL (8.3-10.6); CARBON DIOXIDE LEVEL 24 MMOL/L (20-31); CHLORIDE LEVEL 110 MMOL/L (98-107); CREATININE FOR GFR 0.44 MG/DL (0.55-1.30); GLOMERULAR FILTRATION RATE > 60.0 (>39); GLUCOSE, FASTING 72 MG/DL (74-106); POTASSIUM SERUM 3.9 MMOL/L (3.5-5.1); SODIUM LEVEL 143 MMOL/L (136-145)
[2024-05-02 12:00] VITALS: BP 132/74; TEMP 97.5; O2SAT 96
[2024-05-02] MEDS: PHENAZOPYRIDINE 100 MG TAB PO ONE (17:34)
[2024-05-02 19:38] VITALS: BP 144/98; TEMP 97.7; O2SAT 96
[2024-05-03 06:39] LABS: BLOOD UREA NITROGEN 5 MG/DL (9-23); CALCIUM LEVEL 8.9 MG/DL (8.3-10.6); CARBON DIOXIDE LEVEL 24 MMOL/L (20-31); CHLORIDE LEVEL 110 MMOL/L (98-107); CREATININE FOR GFR 0.47 MG/DL (0.55-1.30); GLOMERULAR FILTRATION RATE > 60.0 (>39); GLUCOSE, FASTING 89 MG/DL (74-106); MAGNESIUM LEVEL 1.9 MG/DL (1.8-2.4); POTASSIUM SERUM 3.9 MMOL/L (3.5-5.1); SODIUM LEVEL 143 MMOL/L (136-145)
[2024-05-03] MEDS ORDERED: AMOX875T2 PO (09:51)
[2024-05-03] MEDS ORDERED: PROBCAP14 PO (09:51)
[2024-05-03 12:00] VITALS: BP 149/84; TEMP 97.7; O2SAT 96
[2024-05-03 20:00] VITALS: BP 150/85; TEMP 97.3; O2SAT 96
[2024-05-03] MEDS: AUGMENTIN 875 MG TAB PO SCH (20:20)
[2024-05-04 04:00] VITALS: BP 145/86; TEMP 97.5; O2SAT 95
[2024-05-04 06:54] LABS: BLOOD UREA NITROGEN 7 MG/DL (9-23); CARBON DIOXIDE LEVEL 24 MMOL/L (20-31); CHLORIDE LEVEL 110 MMOL/L (98-107); CREATININE FOR GFR 0.48 MG/DL (0.55-1.30); GLOMERULAR FILTRATION RATE > 60.0 (>39); GLUCOSE, FASTING 72 MG/DL (74-106); MAGNESIUM LEVEL 1.9 MG/DL (1.8-2.4); SODIUM LEVEL 143 MMOL/L (136-145)
[2024-05-04 12:32] VITALS: BP 119/78; TEMP 97.3; O2SAT 96
[2024-05-04 20:15] VITALS: BP 121/78; TEMP 97.3; O2SAT 97
[2024-05-04] MEDS: MYRBETRIQ 50 MG PO SCH (23:52)
[2024-05-04 23:56] VITALS: TEMP 98.8
[2024-05-05 04:07] VITALS: BP 120/77; TEMP 98; O2SAT 97
[2024-05-05 06:18] LABS: BLOOD UREA NITROGEN 8 MG/DL (9-23); CARBON DIOXIDE LEVEL 26 MMOL/L (20-31); CHLORIDE LEVEL 111 MMOL/L (98-107); CREATININE FOR GFR 0.46 MG/DL (0.55-1.30); GLOMERULAR FILTRATION RATE > 60.0 (>39); GLUCOSE, FASTING 84 MG/DL (74-106); MAGNESIUM LEVEL 1.8 MG/DL (1.8-2.4); POTASSIUM SERUM 3.8 MMOL/L (3.5-5.1); SODIUM LEVEL 141 MMOL/L (136-145)
[2024-05-05] MEDS: LACTOBACILLUS ACIDOPHILUS CAP (BACID) PO SCH (10:17)
[2024-05-05 12:00] VITALS: BP 151/86; TEMP 98.2; O2SAT 99
== END 2024-05-05 12:34 | DRG 698 ==
LOC: EDBD 14:54 → M ED 14:54 → EEVIPCON 21:08 → M ED INP 21:08 → M PCU 04-28 02:26 → M MSPAV 05-01 23:30
PROVIDERS: ADMIT Internal Medicine; ATTEND Student in an Organized Health Care Education/Training Program
DX: T83.511A Infection and inflammatory reaction due to indwelling urethral catheter, initial encounter (principal); A41.9 Sepsis, unspecified organism; L89.153 Pressure ulcer of sacral region, stage 3; J98.11 Atelectasis; J90 Pleural effusion, not elsewhere classified; I31.39 Other pericardial effusion (noninflammatory); Y84.6 Urinary catheterization as the cause of abnormal reaction of the patient, or of later complication, without mention of misadventure at the time of the procedure; E78.2 Mixed hyperlipidemia; K21.9 Gastro-esophageal reflux disease without esophagitis; J45.909 Unspecified asthma, uncomplicated; F32.A Depression, unspecified; E03.9 Hypothyroidism, unspecified; I48.0 Paroxysmal atrial fibrillation; K59.00 Constipation, unspecified; E86.0 Dehydration; B96.20 Unspecified Escherichia coli [E. coli] as the cause of diseases classified elsewhere; J44.9 Chronic obstructive pulmonary disease, unspecified; L89.616 Pressure-induced deep tissue damage of right heel; F20.9 Schizophrenia, unspecified; M54.2 Cervicalgia; D50.9 Iron deficiency anemia, unspecified; M85.80 Other specified disorders of bone density and structure, unspecified site; M19.90 Unspecified osteoarthritis, unspecified site; Z88.6 Allergy status to analgesic agent; Z88.8 Allergy status to other drugs, medicaments and biological substances; Z98.1 Arthrodesis status; Z87.891 Personal history of nicotine dependence; Z79.890 Hormone replacement therapy; Z79.899 Other long term (current) drug therapy

== ENCOUNTER → 2024-05-08 | Outpatient (REF) ==
[~2024-05-08] MED LIST changes: +ACET-897 PO; +ADVA230A INH; +AMOX875T2 PO; +ATOR80TA59 PO; +CALC-356 PO; +ESSE250T PO; +GABA-284 PO; +JUVEPOW4 PO; +LORA-1041 PO; +MILKSUS3 PO; +OXYC-517 PO; +PROBCAP14 PO; +TOPI25TA10 PO; +VENTAER INH
[2024-05-08 12:13] LABS: BASO % 0.4 % (0.0-1.0); EOS # 0.2 10^3/uL (0.0-0.5); EOS % 1.6 % (0.0-3.0); HEMATOCRIT 32.7 % (36.0-47.0); HEMOGLOBIN 9.9 g/dl (12.0-15.5); LYMPH # 1.9 10^3/uL (1.5-5.0); LYMPH % 20.7 % (24.0-44.0); MEAN CORPUSCULAR HGB CONC 30.3 g/dl (32.0-36.5); MEAN CORPUSCULAR VOLUME 89.3 fl (80.0-96.0); MONO # 0.9 10^3/uL (0.0-0.8); MONO % 10.2 % (2.0-8.0); NEUTROPHILS # 6.1 10^3/uL (1.5-8.5); NEUTROPHILS % 66.1 % (36.0-66.0); PLATELET COUNT, AUTOMATED 422 10^3/uL (150-450); RED BLOOD COUNT 3.66 10^6/uL (4.00-5.40); WHITE BLOOD COUNT 9.2 10^3/uL (4.0-10.0)
[2024-05-08 12:48] LABS: BLOOD UREA NITROGEN 16 MG/DL (9-23); CALCIUM LEVEL 8.9 MG/DL (8.3-10.6); CARBON DIOXIDE LEVEL 26 MMOL/L (20-31); CHLORIDE LEVEL 110 MMOL/L (98-107); CREATININE FOR GFR 0.45 MG/DL (0.55-1.30); GLOMERULAR FILTRATION RATE > 60.0 (>39); GLUCOSE, FASTING 131 MG/DL (74-106); POTASSIUM SERUM 4.2 MMOL/L (3.5-5.1); SODIUM LEVEL 142 MMOL/L (136-145)
== END ==
LOC: SKLAB2 07:31
PROVIDERS: ATTEND Internal Medicine
DX: Z79.899 Other long term (current) drug therapy (principal)

== ENCOUNTER → 2024-05-09 | Outpatient (REF) ==
[2024-05-09 14:02] LABS: HEMATOCRIT 37.6 % (36.0-47.0); HEMOGLOBIN 11.4 g/dl (12.0-15.5); MEAN CORPUSCULAR HEMOGLOBIN 27.1 pg (27.0-33.0); MEAN CORPUSCULAR HGB CONC 30.3 g/dl (32.0-36.5); MEAN CORPUSCULAR VOLUME 89.5 fl (80.0-96.0); PLATELET COUNT, AUTOMATED 513 10^3/uL (150-450); WHITE BLOOD COUNT 12.3 10^3/uL (4.0-10.0)
[2024-05-09 14:27] LABS: BLOOD UREA NITROGEN 16 MG/DL (9-23); CALCIUM LEVEL 9.3 MG/DL (8.3-10.6); CARBON DIOXIDE LEVEL 28 MMOL/L (20-31); CHLORIDE LEVEL 106 MMOL/L (98-107); CREATININE FOR GFR 0.46 MG/DL (0.55-1.30); GLOMERULAR FILTRATION RATE > 60.0 (>39); GLUCOSE, FASTING 128 MG/DL (74-106); IRON (FE) 10 UG/DL (50-170); POTASSIUM SERUM 4.3 MMOL/L (3.5-5.1); SODIUM LEVEL 140 MMOL/L (136-145)
[2024-05-09 14:29] LABS: FERRITIN 338.5 NG/ML (7.3-270.7)
== END ==
LOC: SKLAB2 12:57
PROVIDERS: ATTEND Internal Medicine
DX: R53.83 Other fatigue (principal)

== ENCOUNTER 2024-05-11 12:57 | Emergency (ER) | payer MEDICARE, MEDICAID ==
[~2024-05-11] VITALS: Ht 162.6 cm; Wt 61.6 kg
[2024-05-11] MEDS: NS 1,000 ML IV SCH (13:47)
[2024-05-11] MEDS: NS 500 ML IV ONE ×2 (13:47→21:45)
[2024-05-11 14:05] LABS: VENOUS BASE EXCESS 1.8 (-2.0-2.0); VENOUS HCO3 26.3 MMOL/L (23.0-27.0); VENOUS PARTIAL PRESSURE CO2 40.6 mmHg (38.0-50.0); VENOUS PARTIAL PRESSURE O2 56.9 mmHg (30.0-50.0); VENOUS PH 7.429 UNITS (7.330-7.430); VENOUS STANDARD HCO3 25.9 MMOL/L; VENOUS TOTAL CO2 27.5 MMOL/L (24.0-28.0)
[2024-05-11 14:25] LABS: INR 1.21; PARTIAL THROMBOPLASTIN TIME 30.5 SECONDS (24.8-34.2)
[2024-05-11] MEDS ORDERED: DULC10SU2 PR (14:43)
[2024-05-11] MEDS ORDERED: OMEP40CA4 PO (14:43)
[2024-05-11] MEDS ORDERED: RISATAB3 PO (14:43)
[2024-05-11] MEDS ORDERED: AMOX875T2 PO (14:43)
[2024-05-11] MEDS ORDERED: MAGN400T35 PO (14:43)
[2024-05-11] MEDS ORDERED: FOLI1TAB11 PO (14:43)
[2024-05-11] MEDS ORDERED: ACET1TAB55 PO (14:43)
[2024-05-11] MEDS ORDERED: FLEEENE12 PR (14:43)
[2024-05-11] MEDS ORDERED: HOME MED LIST COMPLETE! XX SCH (14:45)
[2024-05-11 14:58] LABS: BASO % 0.2 % (0.0-1.0); EOS # 0.1 10^3/uL (0.0-0.5); EOS % 0.6 % (0.0-3.0); HEMATOCRIT 22.9 % (36.0-47.0); LYMPH # 1.1 10^3/uL (1.5-5.0); MEAN CORPUSCULAR HEMOGLOBIN 27.6 pg (27.0-33.0); MEAN CORPUSCULAR HGB CONC 30.6 g/dl (32.0-36.5); MEAN CORPUSCULAR VOLUME 90.2 fl (80.0-96.0); MONO % 11.7 % (2.0-8.0); NEUTROPHILS # 5.9 10^3/uL (1.5-8.5); PLATELET COUNT, AUTOMATED 354 10^3/uL (150-450); RED BLOOD COUNT 2.54 10^6/uL (4.00-5.40); WHITE BLOOD COUNT 8.1 10^3/uL (4.0-10.0)
[2024-05-11 15:08] LABS: AMORPHOUS SEDIMENT SMALL (NEGATIVE); APPEARANCE, URINE CLOUDY (CLEAR); BACTERIA, URINE AUTO NEGATIVE (NEGATIVE); BILIRUBIN, URINE AUTO NEGATIVE (NEGATIVE); BLOOD, URINE BLOOD NEGATIVE (NEGATIVE); COLOR, URINE YELLOW (YELLOW); GLUCOSE, URINE (UA) AUTO NEGATIVE (NEGATIVE); KETONE, URINE AUTO NEGATIVE (NEGATIVE); LEUKOCYTE ESTERASE, URINE AUTO 3+ (NEGATIVE); MUCUS, URINE SMALL (NEGATIVE); NITRITE, URINE AUTO NEGATIVE (NEGATIVE); PROTEIN, URINE AUTO 1+ mg/dL (NEGATIVE); RBC, URINE AUTO 3 /HPF (0-3); RENAL EPITHELIAL CELLS 2 /HPF; SPECIFIC GRAVITY URINE AUTO 1.019 (1.002-1.035); SQUAMOUS EPITHELIAL CELL UR AU 3 /HPF (0-6); UROBILINOGEN, URINE AUTO 0.2 mg/dL (0.0-2.0); WBC, URINE AUTO 48 /HPF (0-3)
[2024-05-11 15:34] LABS: AMYLASE 22 U/L (30-118)
[2024-05-11 15:35] LABS: ALBUMIN 2.1 G/DL (3.2-5.2); ALKALINE PHOSPHATASE 109 U/L (46-116); ALT/SGPT < 9 U/L (7.0-40); AST/SGOT 9 U/L (<34); BILIRUBIN,DIRECT 0.2 MG/DL (<0.4); BILIRUBIN,TOTAL 0.6 MG/DL (0.3-1.2); BLOOD UREA NITROGEN 18 MG/DL (9-23); CARBON DIOXIDE LEVEL 25 MMOL/L (20-31); CHLORIDE LEVEL 104 MMOL/L (98-107); CREATININE FOR GFR 0.43 MG/DL (0.55-1.30); GLOMERULAR FILTRATION RATE > 60.0 (>39); GLUCOSE, FASTING 122 MG/DL (74-106); POTASSIUM SERUM 4.1 MMOL/L (3.5-5.1); SODIUM LEVEL 136 MMOL/L (136-145)
[2024-05-11] MEDS ORDERED: ISOVUE-370 76% 100ML VIAL As Ordered ONE (16:00)
[2024-05-11 16:01] LABS: IRON (FE) 7 UG/DL (50-170); PERCENT SATURATION 3.4 % (13.2-45.0); TOTAL IRON BINDING CAPACITY 203 UG/DL (250-425)
[2024-05-11] MEDS: cefTRIAXone SOD 2 GM in D5W MINI-BAG PLUS 50 ML IV ONE (16:20)
[2024-05-11 17:59] LABS: PROCALCITONIN 0.16 ng/ml
[2024-05-11 18:32] VITALS: BP 116/57; TEMP 98.8; O2SAT 97
[2024-05-11 18:47] VITALS: BP 108/55; TEMP 99.4; O2SAT 96
[2024-05-11 20:54] VITALS: BP 119/58; TEMP 101.2; O2SAT 98
[2024-05-11] MEDS: ACETAMINOPHEN *IV* 1,000 MG in IV 1 EA IV ONE (21:14)
[2024-05-11 21:30] VITALS: BP 95/52
[2024-05-11 21:32] VITALS: O2SAT 97
[2024-05-11 21:41] VITALS: TEMP 101.2
== END 2024-05-11 21:43 | disposition short-term general hospital (02) ==
LOC: M ED 12:57 → EDBD 12:57 → M ED 21:43
DX: R50.9 Fever, unspecified (principal); D64.9 Anemia, unspecified; I10 Essential (primary) hypertension; J45.909 Unspecified asthma, uncomplicated; K21.9 Gastro-esophageal reflux disease without esophagitis; F20.9 Schizophrenia, unspecified; F43.10 Post-traumatic stress disorder, unspecified; Z98.1 Arthrodesis status; Z88.8 Allergy status to other drugs, medicaments and biological substances; Z79.899 Other long term (current) drug therapy; Z79.890 Hormone replacement therapy
CPT/HCPCS: 51702; 71045; 71250; 80048; 80076; 81001; 82150; 82803; 83550; 83605; 84145; 85025; 85610; 85730; 86140; 86850; 86900; 86901; 86920; 87040; 87088; 87186; 87486; 87581; 87633; 87798; 93005; 93041; 94760; 96361; 96365; 96367; 99285; J0131; J0696; P9016

== ENCOUNTER → 2024-06-06 | Outpatient (REF) ==
[~2024-06-06] MED LIST changes: +ACET1TAB55 PO; +DULC10SU2 PR; +FLEEENE12 PR; +FOLI1TAB11 PO; +MAGN400T35 PO; +OMEP40CA4 PO; +RISATAB3 PO
[2024-06-06 20:49] LABS: APPEARANCE, URINE CLOUDY (CLEAR); BACTERIA, URINE AUTO 1+ (NEGATIVE); BILIRUBIN, URINE AUTO NEGATIVE (NEGATIVE); BLOOD, URINE BLOOD NEGATIVE (NEGATIVE); CALCIUM OXALATE CRYSTALS LARGE; COLOR, URINE YELLOW (YELLOW); GLUCOSE, URINE (UA) AUTO NEGATIVE (NEGATIVE); KETONE, URINE AUTO NEGATIVE (NEGATIVE); LEUKOCYTE ESTERASE, URINE AUTO 3+ (NEGATIVE); MUCUS, URINE SMALL (NEGATIVE); NITRITE, URINE AUTO POSITIVE (NEGATIVE); PROTEIN, URINE AUTO 1+ mg/dL (NEGATIVE); RBC, URINE AUTO 13 /HPF (0-3); SPECIFIC GRAVITY URINE AUTO 1.017 (1.002-1.035); SQUAMOUS EPITHELIAL CELL UR AU 2 /HPF (0-6); WBC, URINE AUTO TNTC /HPF (0-3)
== END ==
LOC: SKLAB2 19:59
PROVIDERS: ATTEND Internal Medicine
DX: R30.0 Dysuria (principal)

== ENCOUNTER → 2024-06-07 | Outpatient (REF) ==
[2024-06-07 11:14] LABS: BASO # 0.1 10^3/uL (0.0-0.2); BASO % 1.2 % (0.0-1.0); EOS # 0.2 10^3/uL (0.0-0.5); EOS % 3.4 % (0.0-3.0); HEMATOCRIT 30.2 % (36.0-47.0); HEMOGLOBIN 9.5 g/dl (12.0-15.5); LYMPH # 1.5 10^3/uL (1.5-5.0); MEAN CORPUSCULAR HEMOGLOBIN 27.2 pg (27.0-33.0); MEAN CORPUSCULAR HGB CONC 31.5 g/dl (32.0-36.5); MEAN CORPUSCULAR VOLUME 86.5 fl (80.0-96.0); MONO # 0.8 10^3/uL (0.0-0.8); MONO % 11.9 % (2.0-8.0); NEUTROPHILS % 60.2 % (36.0-66.0); PLATELET COUNT, AUTOMATED 422 10^3/uL (150-450); RED BLOOD COUNT 3.49 10^6/uL (4.00-5.40); WHITE BLOOD COUNT 6.6 10^3/uL (4.0-10.0)
[2024-06-07 11:44] LABS: ALBUMIN 2.2 G/DL (3.2-5.2); ALKALINE PHOSPHATASE 101 U/L (46-116); ALT/SGPT 11 U/L (7.0-40); AST/SGOT 10 U/L (<34); BILIRUBIN,TOTAL 0.3 MG/DL (0.3-1.2); BLOOD UREA NITROGEN 13 MG/DL (9-23); CALCIUM LEVEL 8.9 MG/DL (8.3-10.6); CARBON DIOXIDE LEVEL 25 MMOL/L (20-31); CHLORIDE LEVEL 109 MMOL/L (98-107); CREATININE FOR GFR 0.53 MG/DL (0.55-1.30); GLOMERULAR FILTRATION RATE > 60.0 (>39); GLUCOSE, FASTING 104 MG/DL (74-106); POTASSIUM SERUM 3.7 MMOL/L (3.5-5.1); SODIUM LEVEL 142 MMOL/L (136-145); TOTAL PROTEIN 6.1 G/DL (5.7-8.2); VANCOMYCIN LEVEL TROUGH 16.6 UG/ML (10.0-20.0)
== END ==
LOC: SKLAB2 09:26
PROVIDERS: ATTEND Internal Medicine
DX: T81.41XD Infection following a procedure, superficial incisional surgical site, subsequent encounter (principal); B95.7 Other staphylococcus as the cause of diseases classified elsewhere

== ENCOUNTER → 2024-06-13 | Outpatient (REF) | payer MEDICAID, MEDICARE ==
[2024-06-13 13:26] LABS: HEMATOCRIT 31.8 % (36.0-47.0); MEAN CORPUSCULAR HEMOGLOBIN 27.3 pg (27.0-33.0); MEAN CORPUSCULAR HGB CONC 31.4 g/dl (32.0-36.5); MEAN CORPUSCULAR VOLUME 86.9 fl (80.0-96.0); PLATELET COUNT, AUTOMATED 480 10^3/uL (150-450); RED BLOOD COUNT 3.66 10^6/uL (4.00-5.40); WHITE BLOOD COUNT 6.3 10^3/uL (4.0-10.0)
[2024-06-13 13:40] LABS: VANCOMYCIN LEVEL TROUGH 16.9 UG/ML (10.0-20.0)
[2024-06-13 13:42] LABS: ALBUMIN 2.3 G/DL (3.2-5.2); ALKALINE PHOSPHATASE 97 U/L (46-116); ALT/SGPT 10 U/L (7.0-40); AST/SGOT 9 U/L (<34); BILIRUBIN,TOTAL 0.2 MG/DL (0.3-1.2); BLOOD UREA NITROGEN 21 MG/DL (9-23); CALCIUM LEVEL 9.4 MG/DL (8.3-10.6); CARBON DIOXIDE LEVEL 27 MMOL/L (20-31); CHLORIDE LEVEL 109 MMOL/L (98-107); CREATININE FOR GFR 0.55 MG/DL (0.55-1.30); GLOMERULAR FILTRATION RATE > 60.0 (>39); GLUCOSE, FASTING 80 MG/DL (74-106); SODIUM LEVEL 141 MMOL/L (136-145); TOTAL PROTEIN 6.4 G/DL (5.7-8.2)
[2024-06-13 13:59] LABS: ERYTHROCYTE SEDIMENTATION RATE 88 mm/hr (0-30)
== END ==
LOC: SKLAB2 07:00
PROVIDERS: ATTEND Internal Medicine
DX: T84.63XD Infection and inflammatory reaction due to internal fixation device of spine, subsequent encounter (principal)

== ENCOUNTER → 2024-06-20 | Outpatient (REF) ==
[~2024-06-20] MED LIST changes: -ARIP10TA32 PO; +ARIP10TA63 PO; +GABA-1172 PO; -GABA-282 PO
[2024-06-20 08:11] LABS: HEMATOCRIT 32.3 % (36.0-47.0); MEAN CORPUSCULAR HEMOGLOBIN 27.7 pg (27.0-33.0); MEAN CORPUSCULAR VOLUME 89.5 fl (80.0-96.0); PLATELET COUNT, AUTOMATED 380 10^3/uL (150-450); RED BLOOD COUNT 3.61 10^6/uL (4.00-5.40); WHITE BLOOD COUNT 5.4 10^3/uL (4.0-10.0)
[2024-06-20 08:34] LABS: C REACTIVE PROTEIN QUANTITATIV < 0.40 MG/DL (<1.0)
[2024-06-20 08:35] LABS: ALBUMIN 2.9 G/DL (3.2-5.2); ALKALINE PHOSPHATASE 87 U/L (46-116); ALT/SGPT < 9 U/L (7.0-40); AST/SGOT 10 U/L (<34); BILIRUBIN,TOTAL 0.5 MG/DL (0.3-1.2); BLOOD UREA NITROGEN 25 MG/DL (9-23); CALCIUM LEVEL 9.7 MG/DL (8.3-10.6); CARBON DIOXIDE LEVEL 28 MMOL/L (20-31); CHLORIDE LEVEL 109 MMOL/L (98-107); CREATININE FOR GFR 0.63 MG/DL (0.55-1.30); GLOMERULAR FILTRATION RATE > 60.0 (>39); GLUCOSE, FASTING 84 MG/DL (74-106); SODIUM LEVEL 144 MMOL/L (136-145); TOTAL PROTEIN 6.6 G/DL (5.7-8.2)
[2024-06-20 08:39] LABS: ERYTHROCYTE SEDIMENTATION RATE 56 mm/hr (0-30)
== END ==
LOC: SKLAB2 07:00
PROVIDERS: ATTEND Internal Medicine
DX: T84.63XD Infection and inflammatory reaction due to internal fixation device of spine, subsequent encounter (principal)

== ENCOUNTER → 2024-06-21 | Outpatient (REF) | LOC: M RAD 11:09 | PROVIDERS: ATTEND Internal Medicine | DX: R52 Pain, unspecified (principal) ==

== ENCOUNTER → 2024-06-27 | Outpatient (REF) ==
[2024-06-27 08:42] LABS: HEMATOCRIT 30.3 % (36.0-47.0); HEMOGLOBIN 9.6 g/dl (12.0-15.5); MEAN CORPUSCULAR HEMOGLOBIN 28.5 pg (27.0-33.0); MEAN CORPUSCULAR HGB CONC 31.7 g/dl (32.0-36.5); MEAN CORPUSCULAR VOLUME 89.9 fl (80.0-96.0); PLATELET COUNT, AUTOMATED 257 10^3/uL (150-450); RED BLOOD COUNT 3.37 10^6/uL (4.00-5.40)
[2024-06-27 09:10] LABS: C REACTIVE PROTEIN QUANTITATIV < 0.40 MG/DL (<1.0)
[2024-06-27 09:12] LABS: ALBUMIN 2.8 G/DL (3.2-5.2); ALKALINE PHOSPHATASE 81 U/L (46-116); ALT/SGPT 19 U/L (7.0-40); AST/SGOT 22 U/L (<34); BILIRUBIN,TOTAL 0.5 MG/DL (0.3-1.2); BLOOD UREA NITROGEN 29 MG/DL (9-23); CARBON DIOXIDE LEVEL 26 MMOL/L (20-31); CHLORIDE LEVEL 109 MMOL/L (98-107); CREATININE FOR GFR 0.57 MG/DL (0.55-1.30); GLOMERULAR FILTRATION RATE > 60.0 (>39); GLUCOSE, FASTING 126 MG/DL (74-106); POTASSIUM SERUM 3.9 MMOL/L (3.5-5.1); SODIUM LEVEL 143 MMOL/L (136-145); TOTAL PROTEIN 6.2 G/DL (5.7-8.2)
[2024-06-27 09:18] LABS: ERYTHROCYTE SEDIMENTATION RATE 28 mm/hr (0-30)
== END ==
LOC: SKLAB2 07:54
PROVIDERS: ATTEND Internal Medicine
DX: T84.63XD Infection and inflammatory reaction due to internal fixation device of spine, subsequent encounter (principal)

== ENCOUNTER → 2024-07-04 | Outpatient (REF) ==
[2024-07-04 11:35] LABS: BASO % 0.6 % (0.0-1.0); EOS # 0.1 10^3/uL (0.0-0.5); EOS % 1.9 % (0.0-3.0); HEMATOCRIT 29.2 % (36.0-47.0); HEMOGLOBIN 9.1 g/dl (12.0-15.5); LYMPH # 1.2 10^3/uL (1.5-5.0); LYMPH % 18.6 % (24.0-44.0); MEAN CORPUSCULAR HEMOGLOBIN 27.6 pg (27.0-33.0); MEAN CORPUSCULAR HGB CONC 31.2 g/dl (32.0-36.5); MEAN CORPUSCULAR VOLUME 88.5 fl (80.0-96.0); MONO # 0.8 10^3/uL (0.0-0.8); MONO % 12.1 % (2.0-8.0); NEUTROPHILS # 4.1 10^3/uL (1.5-8.5); NEUTROPHILS % 66.2 % (36.0-66.0); PLATELET COUNT, AUTOMATED 174 10^3/uL (150-450); WHITE BLOOD COUNT 6.2 10^3/uL (4.0-10.0)
[2024-07-04 12:05] LABS: ERYTHROCYTE SEDIMENTATION RATE 18 mm/hr (0-30)
== END ==
LOC: SKLAB2 07:00
PROVIDERS: ATTEND Internal Medicine
DX: T84.63XD Infection and inflammatory reaction due to internal fixation device of spine, subsequent encounter (principal)

== ENCOUNTER → 2024-07-07 | Outpatient (REF) | payer MEDICAID, MEDICARE | LOC: M RAD 13:07 → EDSTATUS 07-10 08:41 | PROVIDERS: ATTEND Nurse Practitioner Family | DX: K59.00 Constipation, unspecified (principal) ==

== ENCOUNTER → 2024-07-11 | Outpatient (REF) ==
[2024-07-11 13:42] LABS: BASO % 0.6 % (0.0-1.0); EOS # 0.1 10^3/uL (0.0-0.5); EOS % 2.2 % (0.0-3.0); HEMATOCRIT 28.9 % (36.0-47.0); LYMPH # 1.4 10^3/uL (1.5-5.0); LYMPH % 29.4 % (24.0-44.0); MEAN CORPUSCULAR HEMOGLOBIN 28.4 pg (27.0-33.0); MEAN CORPUSCULAR HGB CONC 31.1 g/dl (32.0-36.5); MEAN CORPUSCULAR VOLUME 91.2 fl (80.0-96.0); MONO # 0.4 10^3/uL (0.0-0.8); MONO % 8.9 % (2.0-8.0); NEUTROPHILS # 2.7 10^3/uL (1.5-8.5); NEUTROPHILS % 58.7 % (36.0-66.0); PLATELET COUNT, AUTOMATED 231 10^3/uL (150-450); RED BLOOD COUNT 3.17 10^6/uL (4.00-5.40); WHITE BLOOD COUNT 4.6 10^3/uL (4.0-10.0)
[2024-07-11 13:48] LABS: ERYTHROCYTE SEDIMENTATION RATE 12 mm/hr (0-30)
== END ==
LOC: SKLAB2 11:49
PROVIDERS: ATTEND Internal Medicine
DX: T84.63XD Infection and inflammatory reaction due to internal fixation device of spine, subsequent encounter (principal)

== ENCOUNTER → 2024-07-18 | Outpatient (REF) ==
[2024-07-18 12:05] LABS: BASO # 0.1 10^3/uL (0.0-0.2); BASO % 1.1 % (0.0-1.0); EOS # 0.2 10^3/uL (0.0-0.5); EOS % 5.1 % (0.0-3.0); HEMATOCRIT 32.7 % (36.0-47.0); HEMOGLOBIN 10.2 g/dl (12.0-15.5); LYMPH # 1.5 10^3/uL (1.5-5.0); LYMPH % 32.4 % (24.0-44.0); MEAN CORPUSCULAR HGB CONC 31.2 g/dl (32.0-36.5); MEAN CORPUSCULAR VOLUME 92.9 fl (80.0-96.0); MONO # 0.5 10^3/uL (0.0-0.8); MONO % 10.1 % (2.0-8.0); NEUTROPHILS # 2.3 10^3/uL (1.5-8.5); NEUTROPHILS % 50.9 % (36.0-66.0); PLATELET COUNT, AUTOMATED 301 10^3/uL (150-450); RED BLOOD COUNT 3.52 10^6/uL (4.00-5.40); WHITE BLOOD COUNT 4.5 10^3/uL (4.0-10.0)
[2024-07-18 12:15] LABS: ERYTHROCYTE SEDIMENTATION RATE 9 mm/hr (0-30)
== END ==
LOC: SKLAB2 07:02
PROVIDERS: ATTEND Internal Medicine
DX: T84.63XD Infection and inflammatory reaction due to internal fixation device of spine, subsequent encounter (principal)

== ENCOUNTER → 2024-07-24 | Outpatient (REF) | payer MEDICARE, MEDICAID ==
[2024-07-24 11:27] LABS: BASO # 0.1 10^3/uL (0.0-0.2); BASO % 1.1 % (0.0-1.0); EOS # 0.2 10^3/uL (0.0-0.5); EOS % 2.7 % (0.0-3.0); HEMATOCRIT 33.5 % (36.0-47.0); HEMOGLOBIN 10.7 g/dl (12.0-15.5); LYMPH # 1.3 10^3/uL (1.5-5.0); LYMPH % 22.5 % (24.0-44.0); MEAN CORPUSCULAR HEMOGLOBIN 29.7 pg (27.0-33.0); MEAN CORPUSCULAR HGB CONC 31.9 g/dl (32.0-36.5); MEAN CORPUSCULAR VOLUME 93.1 fl (80.0-96.0); MONO # 0.5 10^3/uL (0.0-0.8); MONO % 9.6 % (2.0-8.0); NEUTROPHILS # 3.6 10^3/uL (1.5-8.5); NEUTROPHILS % 63.9 % (36.0-66.0); PLATELET COUNT, AUTOMATED 224 10^3/uL (150-450); WHITE BLOOD COUNT 5.6 10^3/uL (4.0-10.0)
[2024-07-24 11:33] LABS: ERYTHROCYTE SEDIMENTATION RATE 12 mm/hr (0-30)
== END ==
LOC: SKLAB2 08:09
PROVIDERS: ATTEND Internal Medicine
DX: T84.63XD Infection and inflammatory reaction due to internal fixation device of spine, subsequent encounter (principal)

== ENCOUNTER → 2024-08-04 | Outpatient (REF) | payer MEDICARE, MEDICAID ==
[~2024-08-04] MED LIST changes: -ZIPR80CA12 PO; +ZIPR80CA31 PO
[2024-08-04 18:04] LABS: AMORPHOUS SEDIMENT SMALL (NEGATIVE); APPEARANCE, URINE HAZY (CLEAR); BACTERIA, URINE AUTO NEGATIVE (NEGATIVE); BILIRUBIN, URINE AUTO NEGATIVE (NEGATIVE); BLOOD, URINE BLOOD NEGATIVE (NEGATIVE); COLOR, URINE YELLOW (YELLOW); GLUCOSE, URINE (UA) AUTO NEGATIVE (NEGATIVE); KETONE, URINE AUTO TRACE mg/dL (NEGATIVE); LEUKOCYTE ESTERASE, URINE AUTO 2+ (NEGATIVE); MUCUS, URINE SMALL (NEGATIVE); NITRITE, URINE AUTO NEGATIVE (NEGATIVE); PROTEIN, URINE AUTO NEGATIVE (NEGATIVE); RBC, URINE AUTO 7 /HPF (0-3); SPECIFIC GRAVITY URINE AUTO 1.024 (1.002-1.035); SQUAMOUS EPITHELIAL CELL UR AU 6 /HPF (0-6); UROBILINOGEN, URINE AUTO 0.2 mg/dL (0.0-2.0); WBC, URINE AUTO 30 /HPF (0-3)
== END ==
LOC: M SMT 16:58
PROVIDERS: ATTEND Nurse Practitioner Family
DX: R35.0 Frequency of micturition (principal)

== ENCOUNTER → 2024-08-07 | Outpatient (REF) | payer MEDICARE, MEDICAID ==
[~2024-08-07] MED LIST changes: +ZYVO1TAB PO
[2024-08-07 10:34] LABS: BASO % 0.6 % (0.0-1.0); EOS # 0.3 10^3/uL (0.0-0.5); EOS % 4.2 % (0.0-3.0); HEMATOCRIT 33.4 % (36.0-47.0); HEMOGLOBIN 10.2 g/dl (12.0-15.5); LYMPH # 1.1 10^3/uL (1.5-5.0); LYMPH % 17.5 % (24.0-44.0); MEAN CORPUSCULAR HEMOGLOBIN 28.9 pg (27.0-33.0); MEAN CORPUSCULAR HGB CONC 30.5 g/dl (32.0-36.5); MEAN CORPUSCULAR VOLUME 94.6 fl (80.0-96.0); MONO # 0.7 10^3/uL (0.0-0.8); MONO % 11.5 % (2.0-8.0); NEUTROPHILS # 4.1 10^3/uL (1.5-8.5); PLATELET COUNT, AUTOMATED 225 10^3/uL (150-450); RED BLOOD COUNT 3.53 10^6/uL (4.00-5.40); WHITE BLOOD COUNT 6.2 10^3/uL (4.0-10.0)
[2024-08-07 10:42] LABS: ERYTHROCYTE SEDIMENTATION RATE 13 mm/hr (0-30)
== END ==
LOC: SKLAB2 08:06
PROVIDERS: ATTEND Internal Medicine
DX: T84.63XD Infection and inflammatory reaction due to internal fixation device of spine, subsequent encounter (principal)

== ENCOUNTER → 2024-08-18 | Outpatient (REF) | payer MEDICARE, MEDICAID ==
[2024-08-18 08:41] LABS: BASO # 0.1 10^3/uL (0.0-0.2); BASO % 1.3 % (0.0-1.0); EOS # 0.3 10^3/uL (0.0-0.5); EOS % 5.9 % (0.0-3.0); HEMATOCRIT 35.4 % (36.0-47.0); HEMOGLOBIN 11.1 g/dl (12.0-15.5); LYMPH # 1.9 10^3/uL (1.5-5.0); LYMPH % 40.3 % (24.0-44.0); MEAN CORPUSCULAR HEMOGLOBIN 29.4 pg (27.0-33.0); MEAN CORPUSCULAR HGB CONC 31.4 g/dl (32.0-36.5); MEAN CORPUSCULAR VOLUME 93.9 fl (80.0-96.0); MONO # 0.5 10^3/uL (0.0-0.8); MONO % 11.5 % (2.0-8.0); NEUTROPHILS # 1.9 10^3/uL (1.5-8.5); NEUTROPHILS % 40.8 % (36.0-66.0); PLATELET COUNT, AUTOMATED 256 10^3/uL (150-450); RED BLOOD COUNT 3.77 10^6/uL (4.00-5.40); WHITE BLOOD COUNT 4.6 10^3/uL (4.0-10.0)
[2024-08-18 08:51] LABS: ERYTHROCYTE SEDIMENTATION RATE 13 mm/hr (0-30)
[2024-08-18 09:02] LABS: C REACTIVE PROTEIN QUANTITATIV < 0.40 MG/DL (<1.0)
[2024-08-18 09:04] LABS: ALBUMIN 3.2 G/DL (3.2-5.2); ALKALINE PHOSPHATASE 75 U/L (35-104); ALT/SGPT 17 U/L (7.0-40); AST/SGOT 10 U/L (<34); BILIRUBIN,TOTAL 0.5 MG/DL (0.3-1.2); BLOOD UREA NITROGEN 35 MG/DL (9-23); CALCIUM LEVEL 9.8 MG/DL (8.3-10.6); CARBON DIOXIDE LEVEL 30 MMOL/L (20-31); CHLORIDE LEVEL 111 MMOL/L (98-107); GLOMERULAR FILTRATION RATE > 60.0 (>39); GLUCOSE, FASTING 111 MG/DL (74-106); POTASSIUM SERUM 4.2 MMOL/L (3.5-5.1); SODIUM LEVEL 145 MMOL/L (136-145); TOTAL PROTEIN 6.3 G/DL (5.7-8.2)
== END ==
LOC: SKLAB7 07:12
PROVIDERS: ATTEND Internal Medicine
DX: T84.63XD Infection and inflammatory reaction due to internal fixation device of spine, subsequent encounter (principal)

== ENCOUNTER 2024-08-21 10:40 | Day surgery (SDC) | payer MEDICARE, MEDICAID ==
[~2024-08-21] VITALS: Ht 157.5 cm; Wt 54.7 kg
[2024-08-21] MEDS ORDERED: fentaNYL 100 MCG/2 ML INJECTION As Ordered ONE (11:28)
[2024-08-21] MEDS ORDERED: LIDOCAINE 2% 100MG/5ML SDV (FOR ANES.) As Ordered ONE (11:29)
[2024-08-21] MEDS ORDERED: propofoL 200 MG/20 ML VIAL As Ordered ONE (11:29)
[2024-08-21] MEDS ORDERED: PHENYLephrine 500MCG 5ML (100MCG/ML) SYRINGE As Ordered ONE (12:13)
[2024-08-21 12:24] VITALS: TEMP 97.3
[2024-08-21 13:01] VITALS: BP 132/72; O2SAT 100
[2024-08-21 13:10] LABS: HEMATOCRIT 34.7 % (36.0-47.0)
== END 2024-08-21 15:12 | disposition home or self-care (01) ==
LOC: M OPP 10:40
PROVIDERS: ATTEND Internal Medicine Gastroenterology
DX: R63.4 Abnormal weight loss (principal); R12 Heartburn; K92.2 Gastrointestinal hemorrhage, unspecified; I10 Essential (primary) hypertension; E03.9 Hypothyroidism, unspecified; E78.00 Pure hypercholesterolemia, unspecified; J45.909 Unspecified asthma, uncomplicated; Z79.899 Other long term (current) drug therapy; Z79.890 Hormone replacement therapy; Z88.8 Allergy status to other drugs, medicaments and biological substances; Z88.6 Allergy status to analgesic agent; F43.10 Post-traumatic stress disorder, unspecified; Z98.1 Arthrodesis status; N39.41 Urge incontinence
CPT/HCPCS: 36415; 43235; 45378; 85014; 85018; A6024; J2371; J3010

== ENCOUNTER → 2024-08-29 | Outpatient (CLI) | payer MEDICARE, MEDICAID | LOC: M RAD 11:41 | PROVIDERS: ATTEND Nurse Practitioner Family | DX: M54.50 Low back pain, unspecified (principal); T84.63XA Infection and inflammatory reaction due to internal fixation device of spine, initial encounter; G62.9 Polyneuropathy, unspecified ==

== ENCOUNTER → 2024-08-30 | Outpatient (REF) | payer MEDICARE, MEDICAID ==
[2024-08-30 18:45] LABS: BASO # 0.1 10^3/uL (0.0-0.2); EOS # 0.4 10^3/uL (0.0-0.5); EOS % 6.3 % (0.0-3.0); HEMATOCRIT 32.1 % (36.0-47.0); HEMOGLOBIN 9.9 g/dl (12.0-15.5); LYMPH # 2.3 10^3/uL (1.5-5.0); LYMPH % 39.6 % (24.0-44.0); MEAN CORPUSCULAR HEMOGLOBIN 28.9 pg (27.0-33.0); MEAN CORPUSCULAR HGB CONC 30.8 g/dl (32.0-36.5); MEAN CORPUSCULAR VOLUME 93.9 fl (80.0-96.0); MONO # 0.8 10^3/uL (0.0-0.8); NEUTROPHILS # 2.3 10^3/uL (1.5-8.5); NEUTROPHILS % 38.9 % (36.0-66.0); PLATELET COUNT, AUTOMATED 242 10^3/uL (150-450); RED BLOOD COUNT 3.42 10^6/uL (4.00-5.40); WHITE BLOOD COUNT 5.9 10^3/uL (4.0-10.0)
[2024-08-30 18:59] LABS: ERYTHROCYTE SEDIMENTATION RATE 26 mm/hr (0-30)
== END ==
LOC: SKLAB7 10:34
PROVIDERS: ATTEND Internal Medicine
DX: T84.63XD Infection and inflammatory reaction due to internal fixation device of spine, subsequent encounter (principal)

== ENCOUNTER → 2024-09-19 | Outpatient (REF) | payer MEDICARE, MEDICAID ==
[2024-09-19 07:28] LABS: BASO % 0.8 % (0.0-1.0); EOS # 0.2 10^3/uL (0.0-0.5); EOS % 3.7 % (0.0-3.0); HEMATOCRIT 35.9 % (36.0-47.0); HEMOGLOBIN 11.2 g/dl (12.0-15.5); LYMPH # 1.1 10^3/uL (1.5-5.0); LYMPH % 21.8 % (24.0-44.0); MEAN CORPUSCULAR HEMOGLOBIN 29.6 pg (27.0-33.0); MEAN CORPUSCULAR HGB CONC 31.2 g/dl (32.0-36.5); MEAN CORPUSCULAR VOLUME 94.7 fl (80.0-96.0); MONO # 0.9 10^3/uL (0.0-0.8); MONO % 17.3 % (2.0-8.0); NEUTROPHILS # 2.8 10^3/uL (1.5-8.5); NEUTROPHILS % 56.2 % (36.0-66.0); PLATELET COUNT, AUTOMATED 227 10^3/uL (150-450); RED BLOOD COUNT 3.79 10^6/uL (4.00-5.40); WHITE BLOOD COUNT 4.9 10^3/uL (4.0-10.0)
[2024-09-19 08:06] LABS: ERYTHROCYTE SEDIMENTATION RATE 23 mm/hr (0-30)
== END ==
LOC: SKLAB7 06:27
PROVIDERS: ATTEND Internal Medicine
DX: T84.63XD Infection and inflammatory reaction due to internal fixation device of spine, subsequent encounter (principal)

== ENCOUNTER → 2024-10-11 | Outpatient (REF) | payer MEDICARE, MEDICAID ==
[~2024-10-11] MED LIST changes: -ADV500INH INH; +ADVA1AER10 INH
[2024-10-11 10:57] LABS: BASO % 0.8 % (0.0-1.0); EOS # 0.2 10^3/uL (0.0-0.5); EOS % 4.8 % (0.0-3.0); HEMATOCRIT 37.2 % (36.0-47.0); HEMOGLOBIN 11.6 g/dl (12.0-15.5); LYMPH # 1.5 10^3/uL (1.5-5.0); LYMPH % 30.9 % (24.0-44.0); MEAN CORPUSCULAR HEMOGLOBIN 29.1 pg (27.0-33.0); MEAN CORPUSCULAR HGB CONC 31.2 g/dl (32.0-36.5); MEAN CORPUSCULAR VOLUME 93.2 fl (80.0-96.0); MONO # 0.5 10^3/uL (0.0-0.8); MONO % 10.9 % (2.0-8.0); NEUTROPHILS # 2.5 10^3/uL (1.5-8.5); NEUTROPHILS % 52.4 % (36.0-66.0); PLATELET COUNT, AUTOMATED 225 10^3/uL (150-450); RED BLOOD COUNT 3.99 10^6/uL (4.00-5.40); WHITE BLOOD COUNT 4.8 10^3/uL (4.0-10.0)
[2024-10-11 11:04] LABS: ERYTHROCYTE SEDIMENTATION RATE 20 mm/hr (0-30)
== END ==
LOC: SKLAB7 08:25
PROVIDERS: ATTEND Internal Medicine
DX: T84.63XD Infection and inflammatory reaction due to internal fixation device of spine, subsequent encounter (principal)

== ENCOUNTER → 2024-10-18 | Outpatient (CLI) | payer MEDICARE, MEDICAID | LOC: M RAD 13:35 | PROVIDERS: ATTEND Nurse Practitioner Family | DX: R22.41 Localized swelling, mass and lump, right lower limb (principal) ==

== ENCOUNTER → 2024-10-19 | Outpatient (REF) | payer MEDICARE, MEDICAID | LOC: SKLAB7 07:00 | PROVIDERS: ATTEND Internal Medicine | DX: E55.9 Vitamin D deficiency, unspecified (principal) ==

== ENCOUNTER → 2024-10-25 | Outpatient (REF) | payer MEDICARE, MEDICAID ==
[2024-10-25 10:55] LABS: BASO # 0.1 10^3/uL (0.0-0.2); EOS # 0.2 10^3/uL (0.0-0.5); EOS % 4.1 % (0.0-3.0); HEMATOCRIT 35.5 % (36.0-47.0); LYMPH # 1.3 10^3/uL (1.5-5.0); LYMPH % 26.9 % (24.0-44.0); MEAN CORPUSCULAR HEMOGLOBIN 28.9 pg (27.0-33.0); MEAN CORPUSCULAR VOLUME 93.2 fl (80.0-96.0); MONO # 0.5 10^3/uL (0.0-0.8); MONO % 9.3 % (2.0-8.0); NEUTROPHILS # 2.8 10^3/uL (1.5-8.5); NEUTROPHILS % 58.3 % (36.0-66.0); PLATELET COUNT, AUTOMATED 215 10^3/uL (150-450); RED BLOOD COUNT 3.81 10^6/uL (4.00-5.40); WHITE BLOOD COUNT 4.8 10^3/uL (4.0-10.0)
[2024-10-25 11:00] LABS: ERYTHROCYTE SEDIMENTATION RATE 9 mm/hr (0-30)
[2024-10-25 11:15] LABS: C REACTIVE PROTEIN QUANTITATIV < 0.50 MG/DL (<1.0)
[2024-10-25 11:16] LABS: ALBUMIN 3.3 G/DL (3.2-5.2); ALKALINE PHOSPHATASE 66 U/L (35-104); ALT/SGPT 23 U/L (7.0-40); AST/SGOT 16 U/L (<34); BILIRUBIN,TOTAL 0.5 MG/DL (0.3-1.2); BLOOD UREA NITROGEN 35 MG/DL (9-23); CALCIUM LEVEL 9.1 MG/DL (8.3-10.6); CARBON DIOXIDE LEVEL 30 MMOL/L (20-31); CHLORIDE LEVEL 108 MMOL/L (98-107); CREATININE FOR GFR 0.55 MG/DL (0.55-1.30); GLOMERULAR FILTRATION RATE > 60.0 (>39); GLUCOSE, FASTING 92 MG/DL (74-106); POTASSIUM SERUM 3.7 MMOL/L (3.5-5.1); SODIUM LEVEL 147 MMOL/L (136-145); TOTAL PROTEIN 6.5 G/DL (5.7-8.2)
== END ==
LOC: SKLAB7 07:51
PROVIDERS: ATTEND Internal Medicine
DX: T84.63XD Infection and inflammatory reaction due to internal fixation device of spine, subsequent encounter (principal)

== ENCOUNTER → 2024-11-08 | Outpatient (REF) | payer MEDICARE, MEDICAID ==
[2024-11-08 10:11] LABS: BASO % 0.6 % (0.0-1.0); EOS # 0.2 10^3/uL (0.0-0.5); EOS % 2.9 % (0.0-3.0); HEMATOCRIT 37.1 % (36.0-47.0); HEMOGLOBIN 11.7 g/dl (12.0-15.5); LYMPH # 1.4 10^3/uL (1.5-5.0); LYMPH % 20.9 % (24.0-44.0); MEAN CORPUSCULAR HEMOGLOBIN 29.7 pg (27.0-33.0); MEAN CORPUSCULAR HGB CONC 31.5 g/dl (32.0-36.5); MEAN CORPUSCULAR VOLUME 94.2 fl (80.0-96.0); MONO # 0.8 10^3/uL (0.0-0.8); NEUTROPHILS # 4.4 10^3/uL (1.5-8.5); NEUTROPHILS % 64.3 % (36.0-66.0); PLATELET COUNT, AUTOMATED 189 10^3/uL (150-450); RED BLOOD COUNT 3.94 10^6/uL (4.00-5.40); WHITE BLOOD COUNT 6.8 10^3/uL (4.0-10.0)
[2024-11-08 10:17] LABS: ERYTHROCYTE SEDIMENTATION RATE 15 mm/hr (0-30)
[2024-11-08 10:24] LABS: HEMOGLOBIN A1c 4.9 % (4.0-6.0)
[2024-11-08 10:44] LABS: ALBUMIN 3.5 G/DL (3.2-5.2); ALKALINE PHOSPHATASE 69 U/L (35-104); ALT/SGPT 26 U/L (7.0-40); AST/SGOT 13 U/L (<34); BILIRUBIN,TOTAL 0.6 MG/DL (0.3-1.2); BLOOD UREA NITROGEN 37 MG/DL (9-23); C REACTIVE PROTEIN QUANTITATIV < 0.50 MG/DL (<1.0); CALCIUM LEVEL 9.2 MG/DL (8.3-10.6); CARBON DIOXIDE LEVEL 31 MMOL/L (20-31); CHLORIDE LEVEL 107 MMOL/L (98-107); CREATININE FOR GFR 0.56 MG/DL (0.55-1.30); GLOMERULAR FILTRATION RATE > 60.0 (>39); GLUCOSE, FASTING 90 MG/DL (74-106); POTASSIUM SERUM 3.8 MMOL/L (3.5-5.1); SODIUM LEVEL 145 MMOL/L (136-145); TOTAL PROTEIN 6.7 G/DL (5.7-8.2)
== END ==
LOC: SKLAB7 09:07
PROVIDERS: ATTEND Internal Medicine
DX: T84.63XD Infection and inflammatory reaction due to internal fixation device of spine, subsequent encounter (principal); Z79.899 Other long term (current) drug therapy

== ENCOUNTER → 2024-11-09 | Outpatient (REF) | payer MEDICARE, MEDICAID ==
[~2024-11-09] MED LIST changes: +APAP325T4 PO; +BAYE81TA10 PO; +GABA-1490 PO; +IRON65TA2 PO; +LINE1TAB6 PO; +MAPA500C PO; +MIRA3350 PO; +OMEP-173 PO; +SENN-188 PO; +VIBE75TA PO
[2024-11-09 09:46] LABS: CHOLESTEROL RISK RATIO 5.83 (<5); HDL CHOLESTEROL 39.1 MG/DL (>40); LDL CHOLESTEROL 162.3 MG/DL (<100); NON-HDL-C 188.9 MG/DL
[2024-11-09 09:47] LABS: THYROID STIMULATING HORMONE 1.81 uIU/ML (0.55-4.78)
== END ==
LOC: SKLAB7 07:00
PROVIDERS: ATTEND Internal Medicine
DX: E03.9 Hypothyroidism, unspecified (principal); E78.5 Hyperlipidemia, unspecified

== ENCOUNTER → 2024-11-22 | Outpatient (REF) | payer MEDICARE, MEDICAID ==
[2024-11-22 10:46] LABS: BASO % 0.8 % (0.0-1.0); EOS # 0.2 10^3/uL (0.0-0.5); EOS % 2.9 % (0.0-3.0); HEMATOCRIT 36.2 % (36.0-47.0); HEMOGLOBIN 11.5 g/dl (12.0-15.5); LYMPH # 1.3 10^3/uL (1.5-5.0); LYMPH % 24.7 % (24.0-44.0); MEAN CORPUSCULAR HEMOGLOBIN 29.5 pg (27.0-33.0); MEAN CORPUSCULAR HGB CONC 31.8 g/dl (32.0-36.5); MEAN CORPUSCULAR VOLUME 92.8 fl (80.0-96.0); MONO # 0.6 10^3/uL (0.0-0.8); MONO % 10.6 % (2.0-8.0); NEUTROPHILS # 3.2 10^3/uL (1.5-8.5); NEUTROPHILS % 60.8 % (36.0-66.0); PLATELET COUNT, AUTOMATED 217 10^3/uL (150-450); WHITE BLOOD COUNT 5.2 10^3/uL (4.0-10.0)
[2024-11-22 10:53] LABS: ERYTHROCYTE SEDIMENTATION RATE 13 mm/hr (0-30)
[2024-11-22 11:09] LABS: ALBUMIN 3.4 G/DL (3.2-5.2); ALKALINE PHOSPHATASE 65 U/L (35-104); ALT/SGPT 30 U/L (7.0-40); AST/SGOT 25 U/L (<34); BILIRUBIN,TOTAL 0.6 MG/DL (0.3-1.2); BLOOD UREA NITROGEN 37 MG/DL (9-23); C REACTIVE PROTEIN QUANTITATIV < 0.50 MG/DL (<1.0); CALCIUM LEVEL 9.2 MG/DL (8.3-10.6); CARBON DIOXIDE LEVEL 26 MMOL/L (20-31); CHLORIDE LEVEL 110 MMOL/L (98-107); CREATININE FOR GFR 0.52 MG/DL (0.55-1.30); GLOMERULAR FILTRATION RATE > 60.0 (>39); GLUCOSE, FASTING 98 MG/DL (74-106); POTASSIUM SERUM 4.6 MMOL/L (3.5-5.1); SODIUM LEVEL 146 MMOL/L (136-145); TOTAL PROTEIN 6.7 G/DL (5.7-8.2)
== END ==
LOC: SKLAB7 07:23
PROVIDERS: ATTEND Internal Medicine
DX: T84.63XD Infection and inflammatory reaction due to internal fixation device of spine, subsequent encounter (principal)

== ENCOUNTER 2024-11-28 09:21 | Day surgery (SDC) | payer MEDICARE, MEDICAID ==
[~2024-11-28] VITALS: Ht 157.5 cm; Wt 59.1 kg
[~2024-11-28 09:21] MED LIST changes: +LIDOCAINE 2% 100MG/5ML SDV (FOR ANES.) As Ordered ONE; +propofoL 200 MG/20 ML VIAL As Ordered ONE
[2024-11-28] MEDS ORDERED: fentaNYL 100 MCG/2 ML INJECTION As Ordered ONE (09:50)
[2024-11-28] MEDS ORDERED: MYRB50TA PO (10:04)
[2024-11-28 11:45] VITALS: BP 142/76; O2SAT 96
== END 2024-11-28 11:50 | disposition home or self-care (01) ==
LOC: M OPP 09:21
PROVIDERS: ATTEND Internal Medicine Gastroenterology
DX: Q43.8 Other specified congenital malformations of intestine (principal); K64.8 Other hemorrhoids; Z86.0100 Personal history of colon polyps, unspecified; Z80.0 Family history of malignant neoplasm of digestive organs; R63.4 Abnormal weight loss; K44.9 Diaphragmatic hernia without obstruction or gangrene; I10 Essential (primary) hypertension; E78.5 Hyperlipidemia, unspecified; E03.9 Hypothyroidism, unspecified; K21.9 Gastro-esophageal reflux disease without esophagitis; F20.9 Schizophrenia, unspecified; F32.A Depression, unspecified; F43.10 Post-traumatic stress disorder, unspecified; J45.909 Unspecified asthma, uncomplicated; M19.90 Unspecified osteoarthritis, unspecified site; M48.00 Spinal stenosis, site unspecified; F41.9 Anxiety disorder, unspecified; Z88.6 Allergy status to analgesic agent; Z88.8 Allergy status to other drugs, medicaments and biological substances; Z91.011 Allergy to milk products; Z79.51 Long term (current) use of inhaled steroids; Z79.82 Long term (current) use of aspirin; Z79.890 Hormone replacement therapy; Z79.899 Other long term (current) drug therapy; Z80.3 Family history of malignant neoplasm of breast
CPT/HCPCS: 43235; 45378; J3010

== ENCOUNTER → 2024-12-06 | Outpatient (REF) | payer MEDICARE, MEDICAID ==
[~2024-12-06] MED LIST changes: -LIDOCAINE 2% 100MG/5ML SDV (FOR ANES.) As Ordered ONE; -propofoL 200 MG/20 ML VIAL As Ordered ONE
[2024-12-06 09:01] LABS: BASO % 0.7 % (0.0-1.0); EOS # 0.3 10^3/uL (0.0-0.5); EOS % 7.4 % (0.0-3.0); HEMATOCRIT 36.8 % (36.0-47.0); HEMOGLOBIN 11.6 g/dl (12.0-15.5); LYMPH # 1.5 10^3/uL (1.5-5.0); LYMPH % 35.9 % (24.0-44.0); MEAN CORPUSCULAR HEMOGLOBIN 29.9 pg (27.0-33.0); MEAN CORPUSCULAR HGB CONC 31.5 g/dl (32.0-36.5); MEAN CORPUSCULAR VOLUME 94.8 fl (80.0-96.0); MONO # 0.5 10^3/uL (0.0-0.8); MONO % 13.4 % (2.0-8.0); NEUTROPHILS # 1.7 10^3/uL (1.5-8.5); NEUTROPHILS % 42.4 % (36.0-66.0); PLATELET COUNT, AUTOMATED 188 10^3/uL (150-450); RED BLOOD COUNT 3.88 10^6/uL (4.00-5.40)
[2024-12-06 09:13] LABS: ERYTHROCYTE SEDIMENTATION RATE 30 mm/hr (0-30)
[2024-12-06 09:30] LABS: ALBUMIN 3.4 G/DL (3.2-5.2); ALKALINE PHOSPHATASE 72 U/L (35-104); ALT/SGPT 30 U/L (7.0-40); AST/SGOT 16 U/L (<34); BILIRUBIN,TOTAL 0.5 MG/DL (0.3-1.2); BLOOD UREA NITROGEN 36 MG/DL (9-23); C REACTIVE PROTEIN QUANTITATIV < 0.50 MG/DL (<1.0); CARBON DIOXIDE LEVEL 28 MMOL/L (20-31); CHLORIDE LEVEL 109 MMOL/L (98-107); CREATININE FOR GFR 0.58 MG/DL (0.55-1.30); GLOMERULAR FILTRATION RATE > 60.0 (>39); GLUCOSE, FASTING 78 MG/DL (74-106); POTASSIUM SERUM 3.9 MMOL/L (3.5-5.1); SODIUM LEVEL 145 MMOL/L (136-145); TOTAL PROTEIN 6.6 G/DL (5.7-8.2)
== END ==
LOC: SKLAB7 08:05
PROVIDERS: ATTEND Internal Medicine
DX: T84.63XD Infection and inflammatory reaction due to internal fixation device of spine, subsequent encounter (principal)

== ENCOUNTER 2024-12-19 21:11 | Emergency (ER) | payer MEDICARE, MEDICAID ==
[~2024-12-19] VITALS: Ht 157.5 cm; Wt 59.4 kg
[2024-12-19 21:25] VITALS: TEMP 98.1
[2024-12-19] MEDS: OXYMETAZOLINE 0.05% NASAL SPRAY STA (21:26)
[2024-12-19 22:46] VITALS: BP 134/68; O2SAT 98
== END 2024-12-19 23:21 | disposition home or self-care (01) ==
LOC: M ED 21:11 → EDBD 21:11 → M ED 23:21
DX: R04.0 Epistaxis (principal); Z88.5 Allergy status to narcotic agent; Z88.8 Allergy status to other drugs, medicaments and biological substances; Z91.011 Allergy to milk products; Z79.1 Long term (current) use of non-steroidal anti-inflammatories (NSAID); Z79.51 Long term (current) use of inhaled steroids; Z79.2 Long term (current) use of antibiotics; Z79.899 Other long term (current) drug therapy

== ENCOUNTER 2024-12-30 20:20 | Emergency (ER) | payer MEDICARE, MEDICAID ==
[~2024-12-30] VITALS: Ht 157.5 cm; Wt 59.1 kg
[2024-12-30] MEDS: OXYMETAZOLINE 0.05% NASAL SPRAY ONE (21:15)
[2024-12-30 21:50] LABS: HEMOGLOBIN 10.7 g/dl (12.0-15.5); MEAN CORPUSCULAR HEMOGLOBIN 29.6 pg (27.0-33.0); MEAN CORPUSCULAR HGB CONC 31.5 g/dl (32.0-36.5); MEAN CORPUSCULAR VOLUME 94.2 fl (80.0-96.0); PLATELET COUNT, AUTOMATED 219 10^3/uL (150-450); RED BLOOD COUNT 3.61 10^6/uL (4.00-5.40); WHITE BLOOD COUNT 8.4 10^3/uL (4.0-10.0)
[2024-12-30 22:59] VITALS: BP 117/57; TEMP 97.7; O2SAT 97
[2024-12-30] MEDS ORDERED: OXYM15SP2 NARES (23:23)
== END 2024-12-30 23:33 | disposition home or self-care (01) ==
LOC: M ED 20:20
DX: R04.0 Epistaxis (principal); Z88.5 Allergy status to narcotic agent; Z88.8 Allergy status to other drugs, medicaments and biological substances; Z91.011 Allergy to milk products; Z79.1 Long term (current) use of non-steroidal anti-inflammatories (NSAID); Z79.51 Long term (current) use of inhaled steroids; Z79.2 Long term (current) use of antibiotics; Z79.899 Other long term (current) drug therapy

== ENCOUNTER → 2025-01-07 | Outpatient (REF) | payer MEDICARE, MEDICAID ==
[~2025-01-07] MED LIST changes: +OXYM15SP2 NARES
[2025-01-07 08:23] LABS: HEMATOCRIT 40.7 % (36.0-47.0); HEMOGLOBIN 13.1 g/dl (12.0-15.5); MEAN CORPUSCULAR HGB CONC 32.2 g/dl (32.0-36.5); MEAN CORPUSCULAR VOLUME 93.1 fl (80.0-96.0); PLATELET COUNT, AUTOMATED 291 10^3/uL (150-450); RED BLOOD COUNT 4.37 10^6/uL (4.00-5.40); WHITE BLOOD COUNT 16.1 10^3/uL (4.0-10.0)
[2025-01-07 08:46] LABS: ATYPICAL LYMPH 2 % (0-5); EOSINOPHILS 2 % (0-3); LYMPHOCYTES 3 % (16-44); METAMYELOCYTES 1 % (0-0); MONOCYTES 10 % (0-5); NEUTROPHILS 75 % (28-66)
[2025-01-07 08:47] LABS: CALCIUM LEVEL 8.5 MG/DL (8.3-10.6); CREATININE FOR GFR 1.06 MG/DL (0.55-1.30); GLOMERULAR FILTRATION RATE 56.2 (>39); PLATELET CLUMPS SMALL AMT; PLATELET ESTIMATE NORMAL (NORMAL); POTASSIUM SERUM 3.6 MMOL/L (3.5-5.1)
[2025-01-07 08:48] LABS: ANISOCYTOSIS 1+
[2025-01-07 10:22] LABS: APPEARANCE, URINE CLEAR (CLEAR); BACTERIA, URINE AUTO NEGATIVE (NEGATIVE); BILIRUBIN, URINE AUTO NEGATIVE (NEGATIVE); BLOOD, URINE BLOOD NEGATIVE (NEGATIVE); COLOR, URINE YELLOW (YELLOW); GLUCOSE, URINE (UA) AUTO NEGATIVE (NEGATIVE); KETONE, URINE AUTO NEGATIVE (NEGATIVE); LEUKOCYTE ESTERASE, URINE AUTO NEGATIVE (NEGATIVE); NITRITE, URINE AUTO NEGATIVE (NEGATIVE); PROTEIN, URINE AUTO NEGATIVE (NEGATIVE); RBC, URINE AUTO 5 /HPF (0-3); SPECIFIC GRAVITY URINE AUTO 1.012 (1.002-1.035); SQUAMOUS EPITHELIAL CELL UR AU 0 /HPF (0-6); UROBILINOGEN, URINE AUTO 0.2 mg/dL (0.0-2.0); WBC, URINE AUTO 2 /HPF (0-3)
== END ==
LOC: SKLAB7 05:05
PROVIDERS: ATTEND Internal Medicine
DX: R41.82 Altered mental status, unspecified (principal)

== ENCOUNTER → 2025-01-31 | Outpatient (REF) ==
[~2025-01-31] MED LIST changes: +BACI1CAP PO; +CEFD300CAP PO; -ESSE250T PO; +FLON1SPR NARES; +LOPE1CAP5 PO; +MAGN250T17 PO; +MENT118G7 TP; +METH-855 PO; +MIDO10TA3 PO; +OXYB5TAB14 PO; +PHEN1TAB73 PO; +SANT250O8 TOP; +TOPI-256 PO; -TOPI25TA10 PO
[2025-01-31 09:04] LABS: BASO % 0.4 % (0.0-1.0); EOS # 0.3 10^3/uL (0.0-0.5); EOS % 3.5 % (0.0-3.0); HEMATOCRIT 32.8 % (36.0-47.0); HEMOGLOBIN 10.5 g/dl (12.0-15.5); LYMPH # 2.9 10^3/uL (1.5-5.0); LYMPH % 36.6 % (24.0-44.0); MEAN CORPUSCULAR HEMOGLOBIN 30.3 pg (27.0-33.0); MEAN CORPUSCULAR VOLUME 94.5 fl (80.0-96.0); MONO % 12.5 % (2.0-8.0); NEUTROPHILS # 3.6 10^3/uL (1.5-8.5); NEUTROPHILS % 46.1 % (36.0-66.0); PLATELET COUNT, AUTOMATED 280 10^3/uL (150-450); RED BLOOD COUNT 3.47 10^6/uL (4.00-5.40); WHITE BLOOD COUNT 7.8 10^3/uL (4.0-10.0)
[2025-01-31 09:19] LABS: ALKALINE PHOSPHATASE 68 U/L (35-104); ALT/SGPT 17 U/L (7.0-40); AST/SGOT 16 U/L (<34); BILIRUBIN,TOTAL 0.5 MG/DL (0.3-1.2); BLOOD UREA NITROGEN 27 MG/DL (9-23); CALCIUM LEVEL 8.7 MG/DL (8.3-10.6); CARBON DIOXIDE LEVEL 27 MMOL/L (20-31); CHLORIDE LEVEL 109 MMOL/L (98-107); CREATININE FOR GFR 0.56 MG/DL (0.55-1.30); GLOMERULAR FILTRATION RATE > 90.0 (>39); GLUCOSE, FASTING 95 MG/DL (74-106); SODIUM LEVEL 145 MMOL/L (136-145); TOTAL PROTEIN 5.7 G/DL (5.7-8.2)
== END ==
LOC: SKLAB7 07:50
PROVIDERS: ATTEND Internal Medicine
DX: A04.72 Enterocolitis due to Clostridium difficile, not specified as recurrent (principal)

== ENCOUNTER → 2025-02-07 | Outpatient (REF) ==
[2025-02-07 09:34] LABS: BASO # 0.1 10^3/uL (0.0-0.2); BASO % 0.6 % (0.0-1.0); EOS # 0.2 10^3/uL (0.0-0.5); EOS % 1.8 % (0.0-3.0); HEMATOCRIT 33.6 % (36.0-47.0); HEMOGLOBIN 10.5 g/dl (12.0-15.5); LYMPH # 3.8 10^3/uL (1.5-5.0); LYMPH % 40.2 % (24.0-44.0); MEAN CORPUSCULAR HEMOGLOBIN 29.5 pg (27.0-33.0); MEAN CORPUSCULAR HGB CONC 31.3 g/dl (32.0-36.5); MEAN CORPUSCULAR VOLUME 94.4 fl (80.0-96.0); MONO # 0.8 10^3/uL (0.0-0.8); MONO % 8.7 % (2.0-8.0); NEUTROPHILS # 4.3 10^3/uL (1.5-8.5); NEUTROPHILS % 46.3 % (36.0-66.0); PLATELET COUNT, AUTOMATED 361 10^3/uL (150-450); RED BLOOD COUNT 3.56 10^6/uL (4.00-5.40); WHITE BLOOD COUNT 9.3 10^3/uL (4.0-10.0)
[2025-02-07 10:04] LABS: ALBUMIN 2.2 G/DL (3.2-5.2); ALKALINE PHOSPHATASE 78 U/L (35-104); ALT/SGPT 15 U/L (7.0-40); AST/SGOT 15 U/L (<34); BILIRUBIN,TOTAL 0.5 MG/DL (0.3-1.2); BLOOD UREA NITROGEN 23 MG/DL (9-23); CALCIUM LEVEL 8.9 MG/DL (8.3-10.6); CARBON DIOXIDE LEVEL 26 MMOL/L (20-31); CHLORIDE LEVEL 108 MMOL/L (98-107); CREATININE FOR GFR 0.38 MG/DL (0.55-1.30); GLOMERULAR FILTRATION RATE > 90.0 (>39); GLUCOSE, FASTING 114 MG/DL (74-106); POTASSIUM SERUM 3.7 MMOL/L (3.5-5.1); SODIUM LEVEL 144 MMOL/L (136-145); TOTAL PROTEIN 6.1 G/DL (5.7-8.2)
== END ==
LOC: SKLAB7 08:01
PROVIDERS: ATTEND Internal Medicine
DX: A04.72 Enterocolitis due to Clostridium difficile, not specified as recurrent (principal)

== ENCOUNTER 2025-03-30 19:03 | Emergency (ER) | payer MEDICARE, MEDICAID ==
[~2025-03-30] VITALS: Ht 157.5 cm; Wt 55.8 kg
[~2025-03-30 19:03] MED LIST changes: -PRAV40TA2 PO; +PRAV40TA85 PO
[2025-03-30 19:21] VITALS: BP 136/64; TEMP 97.3; O2SAT 96
[2025-03-30 19:35] LABS: BASO # 0.1 10^3/uL (0.0-0.2); BASO % 0.6 % (0.0-1.0); EOS # 0.2 10^3/uL (0.0-0.5); EOS % 2.7 % (0.0-3.0); LYMPH # 2.4 10^3/uL (1.5-5.0); LYMPH % 26.6 % (24.0-44.0); MONO # 0.8 10^3/uL (0.0-0.8); MONO % 8.6 % (2.0-8.0); NEUTROPHILS # 5.6 10^3/uL (1.5-8.5); NEUTROPHILS % 61.3 % (36.0-66.0); PLATELET COUNT, AUTOMATED 290 10^3/uL (150-450)
[2025-03-30 19:56] LABS: CALCIUM LEVEL 8.7 MG/DL (8.3-10.6); CARBON DIOXIDE LEVEL 26 MMOL/L (20-31); CHLORIDE LEVEL 109 MMOL/L (98-107); CREATININE FOR GFR 0.53 MG/DL (0.55-1.30); GLOMERULAR FILTRATION RATE > 90.0 (>39); POTASSIUM SERUM 4.4 MMOL/L (3.5-5.1); SODIUM LEVEL 144 MMOL/L (136-145)
== END 2025-03-30 21:56 | disposition home or self-care (01) ==
LOC: M ED 19:03
DX: Z48.00 Encounter for change or removal of nonsurgical wound dressing (principal); Z88.8 Allergy status to other drugs, medicaments and biological substances; Z79.1 Long term (current) use of non-steroidal anti-inflammatories (NSAID); Z79.51 Long term (current) use of inhaled steroids; Z79.2 Long term (current) use of antibiotics; Z79.899 Other long term (current) drug therapy
CPT/HCPCS: 11042; 11045; 36415; 80048; 85025; 99284; J0665

== ENCOUNTER → 2025-05-08 | Outpatient (REF) ==
[2025-05-08 12:31] LABS: IRON (FE) 176 UG/DL (50-170)
[2025-05-08 12:42] LABS: ALT/SGPT 18 U/L (7.0-40); AST/SGOT 14 U/L (<34); CALCIUM LEVEL 9.5 MG/DL (8.3-10.6); CARBON DIOXIDE LEVEL 30 MMOL/L (20-31); CHLORIDE LEVEL 108 MMOL/L (98-107); CHOLESTEROL LEVEL 115 MG/DL (<200); CHOLESTEROL RISK RATIO 2.16 (<5); CREATININE FOR GFR 0.56 MG/DL (0.55-1.30); GLOMERULAR FILTRATION RATE > 90.0 (>39); LDL CHOLESTEROL 52.2 MG/DL (<100); NON-HDL-C 61.8 MG/DL; POTASSIUM SERUM 4.1 MMOL/L (3.5-5.1); SODIUM LEVEL 146 MMOL/L (136-145); TRIGLYCERIDES LEVEL 48 MG/DL (<150)
== END ==
LOC: SKLAB7 07:00
PROVIDERS: ATTEND Internal Medicine
DX: D64.9 Anemia, unspecified (principal); E03.9 Hypothyroidism, unspecified; E78.5 Hyperlipidemia, unspecified

== ENCOUNTER → 2025-05-28 | Outpatient (REF) | payer MEDICARE, MEDICAID ==
[~2025-05-28] MED LIST changes: +METH-1100 PO; -METH-855 PO
[2025-05-28 20:00] LABS: AMORPHOUS SEDIMENT SMALL (NEGATIVE); APPEARANCE, URINE CLOUDY (CLEAR); BACTERIA, URINE AUTO NEGATIVE (NEGATIVE); BILIRUBIN, URINE AUTO NEGATIVE (NEGATIVE); BLOOD, URINE BLOOD NEGATIVE (NEGATIVE); GLUCOSE, URINE (UA) AUTO NEGATIVE (NEGATIVE); KETONE, URINE AUTO NEGATIVE (NEGATIVE); LEUKOCYTE ESTERASE, URINE AUTO NEGATIVE (NEGATIVE); NITRITE, URINE AUTO NEGATIVE (NEGATIVE); PROTEIN, URINE AUTO NEGATIVE (NEGATIVE); RBC, URINE AUTO 0 /HPF (0-3); SPECIFIC GRAVITY URINE AUTO 1.023 (1.002-1.035); SQUAMOUS EPITHELIAL CELL UR AU 1 /HPF (0-6); UROBILINOGEN, URINE AUTO 0.2 mg/dL (0.0-2.0); WBC, URINE AUTO 1 /HPF (0-3)
== END ==
LOC: SKLAB7 15:13
PROVIDERS: ATTEND Internal Medicine
DX: R39.15 Urgency of urination (principal)

== ENCOUNTER → 2025-08-07 | Outpatient (REF) | payer MEDICARE, MEDICAID | LOC: SKLAB7 11:49 | PROVIDERS: ATTEND Family Medicine | DX: R10.9 Unspecified abdominal pain (principal); K59.00 Constipation, unspecified ==